=== PATIENT | female | born 1965 | race Caucasian/White ===

== ENCOUNTER 2019-12-27 14:35 | Emergency (ER) | payer MEDICARE, MEDICAID ==
[~2019-12-27] VITALS: Ht 172.7 cm; Wt 124.5 kg
[2019-12-27 14:37] VITALS: BP 129/78
[2019-12-27] MEDS ORDERED: CLAR-69 PO (16:10)
[2019-12-27] MEDS ORDERED: METH4TAB81 PO (16:10)
[2019-12-27] MEDS ORDERED: BENZ-16 PO (16:11)
== END 2019-12-27 16:42 | disposition home or self-care (01) ==
LOC: ER 14:35
DX: J32.9 Chronic sinusitis, unspecified (principal); R05 Cough; J44.9 Chronic obstructive pulmonary disease, unspecified; Z91.048 Other nonmedicinal substance allergy status; Z88.6 Allergy status to analgesic agent; Z79.2 Long term (current) use of antibiotics; Z79.899 Other long term (current) drug therapy
CPT/HCPCS: 99283

== ENCOUNTER 2020-06-22 17:59 | Emergency (ER) | payer MEDICARE, MEDICAID ==
[~2020-06-22] VITALS: Ht 170.2 cm; Wt 140.0 kg
[~2020-06-22 17:59] MED LIST: METH4TAB81 PO
[2020-06-22] MEDS ORDERED: ERYT1OIN6 EACHEYE (19:30)
[2020-06-22 19:43] VITALS: BP 186/78
== END 2020-06-23 00:05 | disposition home or self-care (01) ==
LOC: ER 06-23 00:05
DX: H10.9 Unspecified conjunctivitis (principal); J44.9 Chronic obstructive pulmonary disease, unspecified; Z91.041 Radiographic dye allergy status; Z88.6 Allergy status to analgesic agent; Z79.899 Other long term (current) drug therapy
CPT/HCPCS: 99283

== ENCOUNTER 2020-08-22 19:28 | Emergency (ER) | payer BC, MEDICAID, OTHER ==
[~2020-08-22] VITALS: Ht 170.2 cm; Wt 110.0 kg
[2020-08-22 21:38] VITALS: BP 107/54
== END 2020-08-22 21:40 | disposition home or self-care (01) ==
LOC: ER 19:28
DX: S06.0X0A Concussion without loss of consciousness, initial encounter (principal); R51.9 Headache, unspecified; M54.2 Cervicalgia; R53.1 Weakness; J44.9 Chronic obstructive pulmonary disease, unspecified; Z88.8 Allergy status to other drugs, medicaments and biological substances; Z79.899 Other long term (current) drug therapy; V87.7XXA Person injured in collision between other specified motor vehicles (traffic), initial encounter; Y93.89 Activity, other specified; Y92.89 Other specified places as the place of occurrence of the external cause; Y99.8 Other external cause status
CPT/HCPCS: 70450; 72125; 99285

== ENCOUNTER 2021-07-11 11:47 | Emergency (ER) | payer OTHER ==
[~2021-07-11] VITALS: Ht 170.2 cm; Wt 109.1 kg
[2021-07-11 11:53] VITALS: BP 112/74
[2021-07-11] MEDS ORDERED: CASIRIVIMAB/IMDEVIMAB inject. 10 ML in normal saline 100ml IV soln 100 ML IV ONE (13:15)
[2021-07-11] MEDS ORDERED: ALBU8HFA PO (14:37)
[2021-07-11] MEDS ORDERED: BENZ-16 PO (14:37)
== END 2021-07-11 14:56 | disposition home or self-care (01) ==
LOC: ER 11:48
DX: U07.1 COVID-19 (principal); R50.9 Fever, unspecified; J44.9 Chronic obstructive pulmonary disease, unspecified; Z91.041 Radiographic dye allergy status; Z88.8 Allergy status to other drugs, medicaments and biological substances; Z79.899 Other long term (current) drug therapy
CPT/HCPCS: 71045; 87635; 99284; C9803; M0243; Q0244

== ENCOUNTER 2021-09-25 17:59 | Emergency (ER) | payer OTHER ==
[~2021-09-25] VITALS: Ht 170.2 cm; Wt 122.7 kg
[2021-09-25 18:59] VITALS: BP 127/83
[2021-09-25] MEDS ORDERED: DEXA6TAB6 PO (19:08)
== END 2021-09-25 19:31 | disposition home or self-care (01) ==
LOC: ER 18:00
DX: J02.9 Acute pharyngitis, unspecified (principal); Z20.822 Contact with and (suspected) exposure to COVID-19; R50.9 Fever, unspecified; R19.7 Diarrhea, unspecified; R05.9 Cough, unspecified; R43.8 Other disturbances of smell and taste; I10 Essential (primary) hypertension; J44.9 Chronic obstructive pulmonary disease, unspecified; F17.200 Nicotine dependence, unspecified, uncomplicated; Z88.8 Allergy status to other drugs, medicaments and biological substances; Z79.899 Other long term (current) drug therapy
CPT/HCPCS: 87635; 99283; C9803

== ENCOUNTER 2023-06-22 10:48 | Emergency (ER) | payer MEDICARE, MEDICAID ==
[~2023-06-22] VITALS: Ht 170.2 cm; Wt 125.0 kg
[~2023-06-22 10:48] MED LIST changes: +DEXA6TAB6 PO
[2023-06-22] MEDS ORDERED: PENI250T2 PO (12:45)
[2023-06-22] MEDS ORDERED: NAPR-56 PO (12:45)
[2023-06-22 12:53] VITALS: BP 96/61; PULSE 79; RESP 18; TEMP 98.2; O2SAT 96
--- NOTE | 2023-06-22 14:51 | NUR ---
Chart reviewed after ADMISSIONS OFFICER assessment completed by Relief Charge Nurse, approved.
== END 2023-06-22 14:52 | disposition home or self-care (01) ==
LOC: ER 10:48
DX: K08.89 Other specified disorders of teeth and supporting structures (principal); K13.79 Other lesions of oral mucosa; I10 Essential (primary) hypertension; J44.9 Chronic obstructive pulmonary disease, unspecified; Z91.041 Radiographic dye allergy status; Z88.6 Allergy status to analgesic agent; Z79.899 Other long term (current) drug therapy
CPT/HCPCS: 99283

== ENCOUNTER 2024-03-27 10:08 | Emergency (ER) | payer MEDICARE, MEDICAID ==
[~2024-03-27] VITALS: Ht 175.3 cm; Wt 124.1 kg
[2024-03-27] MEDS ORDERED: LORA10TA7 PO (10:50)
[2024-03-27] MEDS ORDERED: CYCL-1 PO (10:52)
[2024-03-27] MEDS ORDERED: ATOR10TA70 PO (10:52)
[2024-03-27] MEDS ORDERED: HYDR50TA4 PO (10:52)
[2024-03-27] MEDS ORDERED: LOSA25TA41 PO (10:52)
[2024-03-27] MEDS ORDERED: LEVO150T8 PO (10:52)
[2024-03-27 12:06] LABS: BASOPHILS # (AUTO) 0.1 X10'3 (0-0.2); BASOPHILS % (AUTO) 0.7 % (0-1); EOSINOPHILS # (AUTO) 0.2 X10'3 (0-0.9); EOSINOPHILS % (AUTO) 1.7 % (0-6); HEMATOCRIT 39.4 % (35.0-45.0); HEMOGLOBIN 13.6 g/dl (12.0-16.0); LYMPHOCYTES # (AUTO) 1.9 X10'3 (1.1-4.8); LYMPHOCYTES % (AUTO) 19.9 % (21-51); MEAN CORPUSCULAR HEMOGLOBIN 33.9 PG (27.0-31.0); MEAN CORPUSCULAR HGB CONC 34.5 g/dL (33.0-36.5); MEAN CORPUSCULAR VOLUME 98.4 FL (78-98); MEAN PLATELET VOLUME 7.7 FL (7.4-10.4); MONOCYTES # (AUTO) 0.7 X10'3 (0-0.9); MONOCYTES % (AUTO) 7.5 % (2-12); NEUTROPHILS # (AUTO) 6.6 X10'3 (1.8-7.7); NEUTROPHILS % (AUTO) 70.2 % (42-75); PLATELET COUNT 389 X10'3 (140-440); RED CELL DISTRIBUTION WIDTH 17.2 % (11.5-14.5); WHITE BLOOD COUNT 9.4 X10'3 (4.5-11.0)
[2024-03-27 12:23] LABS: ALANINE AMINOTRANSFERASE 37 U/L (12-78); ALBUMIN 3.3 G/DL (3.4-5.0); ALBUMIN/GLOBULIN RATIO 0.8 (1.1-1.5); ALKALINE PHOSPHATASE 79 IU/L (46-116); ANION GAP 9 (8-16); ASPARTATE AMINO TRANSFERASE 26 U/L (10-37); BILIRUBIN,TOTAL 0.6 MG/DL (0.1-1.0); BLOOD UREA NITROGEN 11 MG/DL (7-18); BUN/CREATININE RATIO 11.8 (10.0-20.0); CALCIUM 9.2 MG/DL (8.5-10.1); CHLORIDE 99 MMOL/L (99-107); CREATININE 0.93 MG/DL (0.40-0.90); GLUCOSE 108 MG/DL (70-104); SODIUM 139 MMOL/L (135-145); TOTAL CARBON DIOXIDE 31.5 MMOL/L (24-32); TOTAL PROTEIN 7.3 G/DL (6.4-8.2); eCRCL 68 ML/MIN; eGFR 62 ML/MIN
[2024-03-27] MEDS ORDERED: AMOX-580 PO (12:53)
[2024-03-27] MEDS: amox tr/potassium clavulanate 875/125mg TAB PO ONE (13:20)
[2024-03-27 13:45] VITALS: BP 103/57; PULSE 79; RESP 16; TEMP 98.6; O2SAT 97
== END 2024-03-27 13:48 | disposition home or self-care (01) ==
LOC: ER 10:09
DX: L03.311 Cellulitis of abdominal wall (principal); R10.9 Unspecified abdominal pain; I10 Essential (primary) hypertension; J44.9 Chronic obstructive pulmonary disease, unspecified; Z91.041 Radiographic dye allergy status; Z88.6 Allergy status to analgesic agent; Z79.899 Other long term (current) drug therapy; Z79.2 Long term (current) use of antibiotics
CPT/HCPCS: 36415; 74176; 80053; 85025; 99284

== ENCOUNTER 2025-04-28 14:34 | Inpatient (IN) | payer MEDICAID, MEDICARE ==
[~2025-04-28] VITALS: Ht 170.2 cm; Wt 129.4 kg
[~2025-04-28 14:34] MED LIST changes: +ATOR10TA70 PO; +CYCL-1 PO; -DEXA6TAB6 PO; +HYDR50TA4 PO; +LEVO150T8 PO; +LORA10TA7 PO; +LOSA25TA41 PO; -METH4TAB81 PO
--- NOTE | 2025-04-28 18:22 | VASCULAR REPORT ---
Technique: Real-time ultrasound imaging, with color Doppler and compression of the left common femor al vein, femoral vein, greater saphenous vein, and popliteal vein. Indication: Pain Comparison: None Findings: There is normal compressibility and flow augmentation in all of the imaged deep veins. There are no f illing defects. Impression: No evidence of DVT in the left lower extremity
--- NOTE | 2025-04-28 18:34 | VASCULAR REPORT ---
Indication: Left lower extremity pain Technique: Real- time ultrasound images of the left lower extremity with grayscale, color, and spect ral wave Doppler. Comparison: None Findings: Monophasic waveforms throughout the left lower extremity. Scattered atherosclerotic calcifications. Peak systolic velocities are as follows (in cm/s): Left: Common femoral artery: 38 Profunda femoris: 38 Proximal superficial femoral: 45 Mid superficial femoral artery: 43 Distal superficial femoral artery: 29 Popliteal artery: 19 Posterior tibial artery: 11 Anterior tibial artery: 7 Right brachial 120, left brachial: 118 mm Hg Right posterior tibial artery: 68 mm Hg, left posterior tibial artery: 56 mm Hg Left VIC: 0.47 Right VIC: 0.5 Impression: Findings of severe peripheral arterial disease. Diffusely decreased left lower extremity velocities and monophasic waveforms consistent with hemodyna mically significant stenosis/ high-grade stenosis and likely aortoiliac inflow disease. Recommend CT angiogram of the abdomen/ pelvis and lower extremities to further evaluate Severely decreased bilateral aBIs consistent with severe peripheral arterial disease.
--- NOTE | 2025-04-28 19:14 | Physician Documentation ---
History of Present Illness ~ Chief Complaint: Leg Pain Stated Complaint: L LEG PAIN Time Seen by MD: 15:44 Primary Medical Doctor: ERIC ZARAGOZA Mode of Arrival: POV HPI Patient is seen today with complaints of severe pain of her left lower extremity especially while walking and states it does resolve with rest however not completely. Patient states she does have an extensive smoking history and continue smoking tobacco currently. Patient denies any current chest pain or shortness of breath or abdominal pain or nausea, vomiting, diarrhea. She states he is able to barely walk a few steps without pain in her left lower extremity becoming severe. Tetanus witin 5 years: Yes Medication Reconciliation Allergies: Coded Allergies: Iodine and Iodide Containing Produc (Unverified Allergy, Severe, 04/28/25) aspirin (Unverified Allergy, Severe, 04/28/25) Scheduled Atorvastatin Calcium (Atorvastatin Calcium), 1 TAB PO DAILY, (Reported) Hydrochlorothiazide (Hydrochlorothiazide), 1 TAB PO QAM, (Reported) Levothyroxine Sodium (Levothyroxine Sodium), 1 TAB PO DAILY, (Reported) Loratadine (Loratadine), 1 TAB PO QAM, (Reported) Losartan Potassium (Losartan Potassium), 1 TAB PO DAILY, (Reported) Scheduled PRN Cyclobenzaprine* (Cyclobenzaprine*), 1 TAB PO TID PRN for moderate or severe pain 4-10, (Reported) Past Medical History Past Medical History: Allergic Rhinitis, Sinusitis, Hypertension, Asthma, COPD Past Surgical History: noncontributory Alcohol Use: None Drug Use: none Lives In: Home Review of Systems Constitutional: Denies: chills, fever, weakness Eyes: Denies: pain, blurred vision ENT: Denies: ear pain, nose pain, throat pain, mouth pain Respiratory: Denies: cough, shortness of breath Cardiovascular: Denies: chest pain, palpitations Gastrointestinal: Denies: abdominal pain, nausea, vomiting Genitourinary: Denies: burning, dysuria Female Genitalia: Denies: vaginal discharge, pelvic pain Neurological: Denies: headache, dizziness Musculoskeletal: Denies: pain, swelling Integumentary: Denies: rash, lesions Allergic/Immunologic: Denies: hives, itching Hematologic/Lymphatic: Denies: no symptoms reported Psychiatric: Denies: depression, anxiety Physical Exam Vital Signs: Temperature: 98.4, Source: Oral, Heart Rate: 76, Respiratory Rate: 18, BP: 158/87, Pulse Oximetry: 94, Weight: 129.400 Oxygen Flow Rate: 0 Physical Exam General: Awake and Alert, no acute distress. HEENT: Conjunctiva pink, Sclera clear, Mucus Membranes moist. Neck: Supple without masses and tenderness. Resp: Unlabored. Lungs clear to auscultation bilaterally. Heart: Regular Rate and rhythm, normal S1 and S2 without murmur, rub or gallop. Abdomen: Soft and non tender no organomegaly Extremities: No cyanosis,clubbing or edema. I am unable to palpate pedal pulses in either lower extremity. Patient does have swelling of bilateral lower extremities worse on the left lower extremity. Patient is neurovascularly intact distally of the bilateral lower extremities. Motor function intact distally. Skin: Warm and Dry. Progress Results/Orders Results/Orders Orders - JAVIER BONILLA Page Hospitalist (04/28/25 19:12) Fill Out Med Reconciliation (04/28/25 19:12) Completed Orders - JAVIER BONILLA PAC MG (04/28/25 19:26) Pt Inr (04/28/25 19:26) Electrocardiogram (04/28/25 19:26) D-Dimer (04/28/25 19:26) Hs Troponin I W Calculations (04/28/25 19:26) PTT (04/28/25 19:44) Vital Signs 04/28/25 04/28/25 04/28/25 04/28/25 14:37 15:50 16:18 20:33 Temp 98.5 98.4 Pulse 96 76 57 Resp 18 16 18 18 B/P (MAP) 102/69 158/87 (110) 132/75 (94) Pulse Ox 99 94 96 O2 Flow Rate 0 0 0 Laboratory Tests Test 04/28/25 19:44 White Blood Count 9.5 Red Blood Count 4.68 Hemoglobin 15.2 Hematocrit 44.9 Mean Corpuscular Volume 96.0 Mean Corpuscular Hemoglobin 32.5 H Mean Corpuscular Hemoglobin Concent 33.8 Red Cell Distribution Width 15.1 H Platelet Count 322 Mean Platelet Volume 7.9 Neutrophils (%) (Auto) 62.8 Lymphocytes (%) (Auto) 27.3 Monocytes (%) (Auto) 6.9 Eosinophils (%) (Auto) 2.0 Basophils (%) (Auto) 1.0 Neutrophils # (Auto) 5.9 Lymphocytes # (Auto) 2.6 Monocytes # (Auto) 0.7 Eosinophils # (Auto) 0.2 Basophils # (Auto) 0.1 CBC Comment Prothrombin Time 10.3 INR International Normalized Ratio 1.0 Activated Partial Thromboplast Time 25 D-Dimer 0.64 H D-Dimer Comment Coagulation Comments Sodium Level 139 Potassium Level 3.2 L Chloride Level 98 L Carbon Dioxide Level 30.3 Anion Gap 11 Blood Urea Nitrogen 12 Creatinine 0.66 Estimated GFR/1.73 m2 > 90 BUN/Creatinine Ratio 18.2 Glucose Level 105 H Hemoglobin A1c 5.7 Calcium Level 9.5 Magnesium Level 2.1 Total Bilirubin 0.7 Aspartate Amino Transf (AST/SGOT) 24 Alanine Aminotransferase (ALT/SGPT) 23 Alkaline Phosphatase 83 Troponin I High Sensitivity 117 *H Total Protein 7.4 Albumin 3.8 Globulin 3.6 Albumin/Globulin Ratio 1.1 Triglycerides Level 253 H Cholesterol Level 212 H LDL Cholesterol 131 H HDL Cholesterol 40 Cholesterol/HDL Ratio 5.3 H Thyroid Stimulating Hormone (TSH) 1.99 Chemistry Comments EKG/XRAY/CT/US/VASC/MRI Vascular : Impression VASCULAR Patient: KEI LEON Medical Record: [id number] ELIZABETH HEBRON : 1965, Age: 59 Sex: F Location: ER Patient Status: REG ER Service Date/Time: 04/28/251449 Ordering Physician: JOE CLEMONS Exam Name: ARTERIAL Technologist: Raymundo Case Indication: Left lower extremity pain Technique: Real- time ultrasound images of the left lower extremity with grayscale, color, and spectral wave Doppler. Comparison: None Findings: Monophasic waveforms throughout the left lower extremity. Scattered atherosclerotic calcifications. Peak systolic velocities are as follows (in cm/s): Left: Common femoral artery: 38 Profunda femoris: 38 Proximal superficial femoral: 45 Mid superficial femoral artery: 43 Distal superficial femoral artery: 29 Popliteal artery: 19 Posterior tibial artery: 11 Anterior tibial artery: 7 Right brachial 120, left brachial: 118 mm Hg Right posterior tibial artery: 68 mm Hg, left posterior tibial artery: 56 mm Hg Left VIC: 0.47 Right VIC: 0.5 Impression: Findings of severe peripheral arterial disease. Diffusely decreased left lower extremity velocities and monophasic waveforms consistent with hemodynamically significant stenosis/ high-grade stenosis and likely aortoiliac inflow disease. Recommend CT angiogram of the abdomen/ pelvis and lower extremities to further evaluate Severely decreased bilateral aBIs consistent with severe peripheral arterial disease. Dictated by:ZULLY AQUINO MD Dictation date and time:04/28/251833 Electronically Signed by: ZULLY AQUINO MD Date and Time: 04/28/251833 Transcribed: [facility] Transcribed: NO PRIMARY CARE PROVIDER~ cc: ZULLY AQUINO MD; JOE CLEMONS ~ Medical Decision Making Findings Patient is seen today with complaints of severe pain of her left lower extremity especially while walking and states it does resolve with rest however not completely. Patient states she does have an extensive smoking history and continue smoking tobacco currently. Patient denies any current chest pain or shortness of breath or abdominal pain or nausea, vomiting, diarrhea. She states he is able to barely walk a few steps without pain in her left lower extremity becoming severe. Patient did have ultrasound of the lower extremities venous and arterial and there was no sign of blood clot found however she was found to have severe PVD worse on the left side. Hospitalist was consulted and CT angiogram of the abdomen and pelvis and lower extremities was ordered. Departure Disposition: 09 ADMITTED INPATIENT Admitted to Inpatient Unit: to hospitalist Impression: Primary Impression: Claudication of both lower extremities Condition: Fair Additional Instructions: Patient did have ultrasound of the lower extremities venous and arterial and there was no sign of blood clot found however she was found to have severe PVD worse on the left side. Hospitalist was consulted and CT angiogram of the abdomen and pelvis and lower extremities was ordered. Referrals: NO PRIMARY CARE PROVIDER (PCP) Signature Scribe Signature: No scribe Attestation: No scribe IRENEJAVIRE R [facility] Apr 28, 2025 19:14
--- NOTE | 2025-04-28 19:49 | ELECTROCARDIOGRAPH REPORT ---
[facility] Test Date: 2025-04-28 Test Time: 19:48:19 Pat Name: KEI LEON Department: [facility]-ER Patient ID: [facility]-[id number] Room: Gender: F Sexual Assault Counsellor: : 1965 Requested By: JAVIER BONILLA Order Number: [id number] Reading MD: Measurements Intervals [place] Rate: 51 P: 40 DE: 155 QRS: 39 QRSD: 104 T: 50 QT: 458 QTc: 422 Interpretive Statements Sinus bradycardia Atrial premature complexes in couplets Low voltage, precordial leads Please click the below link to view image of tracing.
[2025-04-28 19:57] LABS: MEAN PLATELET VOLUME 7.9 FL (7.4-10.4); RED CELL DISTRIBUTION WIDTH 15.1 % (11.5-14.5)
[2025-04-28 20:09] LABS: INR 1.0 INR
[2025-04-28] MEDS ORDERED: heparin 10,000 units/1 ML INJ IV PRN (20:25)
[2025-04-28] MEDS ORDERED: heparin 10,000 units/1 ML INJ IV ONE (20:25)
[2025-04-28 20:31] LABS: CREATININE 0.66 MG/DL (0.40-0.90); TOTAL CARBON DIOXIDE 30.3 MMOL/L (24-32); eCRCL 88 ML/MIN; eGFR > 90 ML/MIN
[2025-04-28] MEDS ORDERED: potassium Cl 20 mEq SR tablet PO PRN (20:35)
[2025-04-28] MEDS ORDERED: magnesium sulf-water 4G/100mL 100 ML IV PRN (20:35)
[2025-04-28] MEDS ORDERED: magnesium sulf-water 2g/50mL 50 ML IV PRN (20:35)
[2025-04-28] MEDS ORDERED: mag hydrox/Alum hydrox/simeth 30ml oral suspension PO PRN (20:35)
[2025-04-28] MEDS ORDERED: magnesium hydroxide 30ml (MOM) UD suspension PO PRN (20:35)
[2025-04-28] MEDS ORDERED: potassium Cl 40MEQ/1/2NS 520ml 520 ML IV PRN (20:35)
[2025-04-28] MEDS ORDERED: ondansetron/PF 4mg/2ml inj IV PRN (20:35)
[2025-04-28] MEDS ORDERED: magnesium Cl slow-release 64mg tablet PO PRN (20:35)
[2025-04-28 20:39] LABS: CHOL/HDL RATIO 5.3 (0.00-4.99); LDL CHOLESTEROL 131 MG/DL (50-100)
[2025-04-28 20:44] LABS: APTT 25 SECONDS (22-32)
--- NOTE | 2025-04-28 20:58 | HISTORY AND PHYSICAL-Residence ---
History & Physical Providers to CC Resident Creating Document: JOSÉ LUIS CHAMPION, CHRIS ~ History of Present Illness Primary Medical Doctor: ERIC MEDICAL Reason for Admit\Complaint: Peripheral Artery Disease History of Present Illness This is a 59-year-old female with a known history of hypertension, smoker ,presented in ER with complain of severe left leg pain. Patient states that her left leg pain was started 2 months ago which is progressively worsening excerbated by walking and partially relieved by rest.She grades her pain 10/10 during walking and around 7-8/10 at rest. Her pain starts from hip and radiate down to the mid calf.In addition to the pain, she has noticed left lower extremity swelling from knee to the leg since monday and thigh swelling since 2 weeks,She denies pain in her left feet but reports tingling sensations and feels cold, she can barely walk because of pain, she can go to restroom by herself with the support of ramirez. Apart from that she also had bilateral hip replacement 7-8 years ago. She has also experienced anaphylactic shock with iodine and aspirin. allergic to iodine,aspirin,cat dust,mold and some trees which she dont remember. Allergies: Coded Allergies: Iodine and Iodide Containing Produc (Unverified Allergy, Severe, 04/28/25) aspirin (Unverified Allergy, Severe, 04/28/25) Home Medications Home Medications Active Reported Atorvastatin Calcium 10 Mg Tablet 1 Tab PO DAILY Levothyroxine Sodium 150 Mcg Tablet 1 Tab PO DAILY Losartan Potassium 25 Mg Tablet 1 Tab PO DAILY Hydrochlorothiazide 50 Mg Tablet 1 Tab PO QAM Cyclobenzaprine* (Cyclobenzaprine HCl) 10 Mg Tablet 1 Tab PO TID PRN Loratadine 10 Mg Tablet 1 Tab PO QAM Past Medical History Past Medical History Hypertension Hypothyroidism Hyperlipidemia Past Surgical History Surgical History Comment Cholecystectomy Hysterectomy Bilateral hip replacement facial Sinus surgeries Nasal Polyps removed Past Social History Social History Comment Patient is a smoker and have been smoking since 20 years, she smokes half a pack a day but since last 3 months she is consuming a pack a day. 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 Alcohol Use: None Drug Use: None Lives In: Home ROS Constitutional: Reports: no symptoms reported Eyes: Reports: no symptoms reported ENT: Reports: no symptoms reported Respiratory: Reports: no symptoms reported Cardiovascular: Reports: no symptoms reported Gastrointestinal: Reports: no symptoms reported; Denies: abdominal pain, nausea, vomiting Genitourinary: Reports: no symptoms reported Female Genitalia: Reports: no reported symptoms Neurological: Reports: no symptoms reported; Denies: headache, dizziness Musculoskeletal: Reports: muscle swelling Integumentary: Denies: no symptoms reported, see HPI, rash, itching, lesions, lumps, bruise(s), wound(s), laceration(s), dryness, change in color, other Allergic/Immunologic: Reports: other (She had anaphylactic shock with aspirin and iodine.); Denies: itching Hematologic/Lymphatic: Reports: no symptoms reported Endocrine: Reports: no symptoms reported Psychiatric: Denies: depression, anxiety Exam Vitals: Vital Signs Date Time Temp Pulse Resp B/P (MAP) Pulse Ox O2 Delivery O2 Flow Rate FiO2 04/28/25 20:33 57 18 132/75 (94) 96 0 04/28/25 16:18 98.4 General: General: awake, alert oriented to place, time, and person HEENT: No pallor present, no icterus, moist mucous membranes Neck: No masses and tenderness Resp: Unlabored. Lungs clear to auscultation bilaterally. Chest: Normal expansion. Cardiovascular: Regular Rate and rhythm, normal S1 and S2 without murmur, rub or gallop Abdomen: Soft and non tender in epigastrium, no organomegaly, no guarding and rigidity, bowel sounds present. Neuro: No focal weakness in the upper and lower limb muscles, power of the muscles 5/5 bilateral upper and lower extremities, normal reflexes bilaterally. Cranial nerves intact Upper Extremities: No cyanosis,clubbing or edema Lower extremity examination. Warm left lower extremity swollen from thighs upto leg, foot was normal, bumps noted in left thigh, dorsalis pedis artery pulse palpable, no cyanosis noted, could not feel other pulses as patient was very obese. Warm Right lower extremity dorsalis pedis artery pulse palpable, no cyanosis noted,no swelling noted, could not feel other pulses as patient was very obese. Skin: Warm and Dry Psych: Normal affect Diagnostic Data Last Recorded Lab Results: 04/28/25194304/28/251943 Diagnostic Data: Laboratory Tests Test 04/28/25 19:44 Prothrombin Time 10.3 SECONDS (9.0-12.0) INR International Normalized Ratio 1.0 INR Activated Partial Thromboplast Time 25 SECONDS (22-32) D-Dimer 0.64 MG/L FEU (0-0.50) H D-Dimer Comment Coagulation Comments Advance Care Planning Advanced Care plannin - 30 Minutes (I spent 17 minutes in discussing various resuscitative measures with the patient and she chose to be full code) Additional Plan This is a 59-year-old female with a known history of hypertension, smoker ,presented in ER with complain of severe left leg pain. Patient states that her left leg pain was started 2 months ago which is progressively worsening excerbated by walking and partially relieved by rest.She grades her pain 10/10 during walking and around 7-8/10 at rest. Her pain starts from hip and radiate down to the mid calf.In addition to the pain, she has noticed left lower extremity swelling from knee to the leg since monday. and thigh swelling since 2 weeks,She denies pain in her left feet but reports tingling sensations and feels cold, she can barely walk because of pain, she can go to restroom by herself with the support of ramirez. PLAN Bilateral lower extremity PERIPHERAL ARTERY DISEASE Severe left lower extremity peripheral artery disease Arterial US: Diffusely decreased left lower extremity velocities and monophasic waveforms consistent with hemodynamically significant stenosis/ high-grade stenosis and likely aortoiliac inflow disease. Left VIC: 0.47 Right VIC: 0.5 Vascular US:No DVT noted in left lower extremity. Cholestrol 253, LDL Cholestrol 131 Patient started on Heparin drip in ER Start patient on 40 mg Atorvastatin Internet Researcher for smoking cessation. Monitor for signs for acute limb ischemia like paresthesias, paralysis, coldness of the feet, has been consulted for further evaluation and advised for CT angio abdomen/pelvis, bilateral lower extremity with iodine allergy protocol. HOWEVER PATIENT STATED SHE HAD SEVERE ANAPHYLAXIS WITH IODINE EVEN AFTER RECEIVING PREMEDICATION DURING PREVIOUS HOSPITALIZATION AT [facility]. WE WILL PREMEDICATE WITH 50 MG PREDNISONE AT 12:30 A.M, ANOTHER DOSE AT 6:30 A.M., AND ANOTHER DOSE AT 12:30 P.M. ALONG WITH ONE DOSE OF 50 MG OF IV BENADRYL AT 12:[address] DANG REGARDING FURTHER OPTIONS LIKE CO2 ANGIOGRAM PATIENT HAD HISTORY OF SEVERE IODINE ANAPHYLAXIS. Elevated troponins Likely secondary to type 2 NH Farhat Score [address] ELEVATION No chest pain trops trending downward tx2 114,104 Follow up with Echo and Lexiscan Hypokalemia most likely due to hydrochlorthiazide use. K is 3.2 Started patient on K protocol. Monitor CMP Hyperlipidemia Start atorvastatin 40 mg po daily. Follow up with lipid levels. Hypertension Awaiting Med Renco -home dose of hydrochlorothiazide and losartan on hold, restart once CT with contrast was done Hypothyrodism Continue Levothyroxine 150 mcg tablet daily. Monitor TSH Dvt Prophylaxis: On heparin drip now, put patient on Heparin SQ once heparin drip is dced Code Status: Full Code Patient was evaluated using HIPPA Compliant AV device Agree with plan as discussed with the resident Lakeisha Tam MD Date of Service: Apr 28, 2025 Billing Provider: LAKEISHA TAM MD, SANJAY, RES Apr 28, 2025 20:58 GERARD BLISS, RES Apr 28, 2025 22:46 LAKEISHA TAM MD Apr 29, 2025 02:48
[2025-04-28] MEDS: MESSAGE TO NURSING IV ONE (21:05)
[2025-04-28] MEDS: PERFLUTREN PROTEIN-A MICROSPHR (Optison) 0.22 MG/ML 3ML VIAL IV ONE (22:15)
[2025-04-28] MEDS: heparin 10,000 units/1 ML INJ IV ONE (22:28)
[2025-04-28] MEDS: heparin 25,000 UNIT/250ml bag 250 ML IV PRN (22:30)
[2025-04-28] MEDS ORDERED: HYDROcodone/acetaminophen 5mg/325mg tablet PO PRN (22:45)
[2025-04-28 23:30] VITALS: RESP 21; O2SAT 100
[2025-04-28] MEDS: HYDROcodone/acetaminophen 10/325mg tab PO PRN (23:50)
[2025-04-28] MEDS: potassium Cl 20 mEq SR tablet PO PRN (23:52)
[2025-04-28 23:57] VITALS: BP 125/58; PULSE 65; RESP 14; TEMP 96.8; O2SAT 92
[2025-04-29] VITALS (8 sets, daily range): BP systolic 103–133; BP diastolic 49–73; PULSE 53–89; RESP 20–25; TEMP 97.6–98.6; O2SAT 90–100
[2025-04-29 06:36] LABS: MEAN PLATELET VOLUME 8.3 FL (7.4-10.4); RED CELL DISTRIBUTION WIDTH 15.1 % (11.5-14.5)
[2025-04-29 06:46] LABS: INR 1.0 INR
[2025-04-29 06:49] LABS: APTT 87 SECONDS (22-32)
[2025-04-29 06:55] LABS: PHOSPHORUS 4.5 MG/DL (2.3-4.5)
[2025-04-29] MEDS: levoTHYROXINE 75mcg tablet PO SCH (07:02)
[2025-04-29] MEDS: K and/or MAG REPLACEMENT MC SCH (07:10)
[2025-04-29] MEDS: docusate sod 100mg capsule PO SCH (07:11)
[2025-04-29] MEDS: MESSAGE TO NURSING IV ONE ×2 (07:23→17:15)
[2025-04-29 08:47] LABS: PRO BRAIN NATRIURETIC PEPTIDE 69.0 PG/ML (0-125)
--- NOTE | 2025-04-29 18:33 | CARDIOLOGY REPORT ---
APPROVED REPORT EXAM: Comprehensive 2D, Doppler, and color-flow Echocardiogram. Patient Location: [facility] B Heart Rate: 60's bpm Rhythm: SINUS BRADYCARDIA Indications ANGINA TROP 114, 104 COPD HYPERTENSION BILATERAL EDEMA Blower Room Attendant: Hero King MD Previous echo: [facility] 06-26-2015 EF: 65%, trTR, trMR, RVE, LAE 2D Dimensions RVDd 2.3 cm IVSd 1.2 (0.7-1.1cm) LVDd 4.6 cm PWd 1.2 (0.7-1.1cm) IVSs 1.5 (0.8-1.2cm) LVDs 2.8 (2.5-4.0cm) PWs 1.5 (0.8-1.2cm) LVOT Diameter 2.25 (1.8-2.4cm) LVEF(%) 68.3 (>50%) FS (%) 38.0 % SV 66.0 ml CO 4.4 L/min M-Mode Dimensions Left Atrium(MM) 4.51 (2.5-4.0cm) Aortic Root 3.00 (2.2-3.7cm) Aortic Cusp Exc 1.17 (1.5-2.0cm) Aortic Valve AoV Peak Tex. 341.9 cm/s AoV VTI 79.5 cm AO Peak GR. 46.8 mmHg AO Mean GR. 28 mmHg LVOT VTI 23.66 cm LVOT Peak Tex. 106.6 cm/s VICTOR HUGO(VTI)/BSA 1.18 cm2/m2 VICTOR HUGO (VTI) 1.18 cm2 Mitral Valve MV E Velocity 101.8 cm/s MV Peak Gr. 6 mmHg MV DECEL TIME 276 ms MV A Velocity 109.1 cm/s MV PHT 68 ms E/A Ratio 0.9 MVA (PHT) 3.24 cm2 MV JYab299.4 cm/s Tricuspid Valve TR P. Velocity 275 cm/s RAP ESTIMATE 10 mmHg TR Peak Gr. 30 mmHg RVSP 40 mmHg LEFT VENTRICLE Normal LV size and function. Mild concentric hypertrophy. LVEF is 65-70%. RIGHT VENTRICLE RV is normal size and function. Elevated right heart pressures with an RVSP of 40 mmHg. ATRIA Left atrium is mildly dilated. AORTIC VALVE Trileaflet AV appears moderately sclerotic with moderate stenosis. VICTOR HUGO: 1.18 cmsq; Pkv: 342 cm/sec; G radients: 47/28 mmHG. No insufficiency. MITRAL VALVE Mild MV annular calcification without stenosis. Trace regurgitation. TRICUSPID VALVE TV appears structurally normal with trace regurgitation. PULMONIC VALVE Normal PV without stenosis, no insufficiency. GREAT VESSELS The aortic root is normal in size. PERICARDIUM Normal pericardium. No effusion. Other Information Study Quality: Adequate Conclusion Normal LV size and function. Mild concentric hypertrophy. LVEF is 65-70%. RV is normal size and function. Elevated right heart pressures with an RVSP of 40 mmHg. Left atrium is mildly dilated. Trileaflet AV appears moderately sclerotic with moderate stenosis. VICTOR HUGO: 1.18 cmsq; Pkv: 342 cm/sec; G radients: 47/28 mmHG. No insufficiency. Mild MV annular calcification without stenosis. Trace regurgitation. TV appears structurally normal with trace regurgitation. Normal pericardium. No effusion.
--- NOTE | 2025-04-29 19:50 | PROGRESS NOTE- Residence ---
Progress Note - Resident Providers to CC Resident Creating Document: ANSON JUAN, CHRIS ~ Central Line/PICC still needed: N\A Shin-Non Protocol Shin Indications Met/Not Met: F/C Indications Not Met Antibiotic Timeout Antibiotic Ordered?: No Subjective Patient examined bedside. She complains of pain in bilateral legs. She is able to wiggle her toes. Russell sign positive bilaterally. Objective Vital Signs Date Time Temp Pulse Resp B/P (MAP) Pulse Ox O2 Delivery O2 Flow Rate FiO2 04/29/25 15:10 16 04/29/25 15:00 98.3 75 122/63 (82) 98 Room Air 04/29/25 08:00 0.0 Result Diagram: 04/29/25 0554 04/29/25 0554 General: awake, alert oriented to place, time, and person HEENT: No pallor present, no icterus, moist mucous membranes Neck: No masses and tenderness Resp: Unlabored. Lungs clear to auscultation bilaterally. Chest: Normal expansion. Cardiovascular: Regular Rate and rhythm, normal S1 and S2 without murmur, rub or gallop Abdomen: Soft and non tender in epigastrium, no organomegaly, no guarding and rigidity, bowel sounds present. Neuro: No focal weakness in the upper and lower limb muscles, power of the muscles 5/5 bilateral upper and lower extremities, normal reflexes bilaterally. Cranial nerves intact Upper Extremities: No cyanosis,clubbing or edema Lower extremity examination. Warm left lower extremity swollen from thighs upto leg, foot was normal, bumps noted in left thigh, dorsalis pedis artery pulse palpable, no cyanosis noted, could not feel other pulses as patient was very obese. Warm Right lower extremity dorsalis pedis artery pulse palpable, no cyanosis noted,no swelling noted, could not feel other pulses as patient was very obese. Coagulation Studies Laboratory Tests Test 04/28/25 19:44 04/29/25 05:54 04/29/25 15:04 D-Dimer 0.64 MG/L FEU (0-0.50) H D-Dimer Comment Prothrombin Time 10.5 SECONDS (9.0-12.0) INR International Normalized Ratio 1.0 INR Activated Partial Thromboplast Time 87 SECONDS (22-32) *H APTT (Heparin Protocol) 66 SECONDS (45-75) Coagulation Comments Assessment Assessment 59-year-old female with a known history of hypertension, smoker ,presented in ER with complain of severe left leg pain. Plan Plan PLAN Bilateral lower extremity PERIPHERAL ARTERY DISEASE Severe left lower extremity peripheral artery disease Arterial US: Diffusely decreased left lower extremity velocities and monophasic waveforms consistent with hemodynamically significant stenosis/ high-grade stenosis and likely aortoiliac inflow disease. Left VIC: 0.47 Right VIC: 0.5 Vascular US:No DVT noted in left lower extremity. Cholestrol 253, LDL Cholestrol 131 Patient started on Heparin drip in ER Start patient on 40 mg Atorvastatin Counseled for smoking cessation. Monitor for signs for acute limb ischemia like paresthesias, paralysis, coldness of the feet, has been consulted for further evaluation and advised for CT angio abdomen/pelvis, bilateral lower extremity with iodine allergy protocol. HOWEVER PATIENT STATED SHE HAD SEVERE ANAPHYLAXIS WITH IODINE EVEN AFTER RECEIVING PREMEDICATION DURING PREVIOUS HOSPITALIZATION AT [facility]. WILL DISCUSS WITH DR. DANG REGARDING FURTHER OPTIONS LIKE CO2 ANGIOGRAM PATIENT HAD HISTORY OF SEVERE IODINE ANAPHYLAXIS. 04/29/2025: Working with the medical case manager to arrange for CO2 angiogram in any hospital. CT with contrast not possible under any circumstances even with pre dosing of prednisone. Patient has declined to this procedure Elevated troponins Likely secondary to type 2 [place] Farhat Score [address] ELEVATION No chest pain trops trending downward tx2 114,104 04/29/2025: Patient reports no chest pain Echo:Normal LV size and function. Mild concentric hypertrophy. LVEF is 65-70%. RV is normal size and function. Elevated right heart pressures with an RVSP of 40 mmHg. Left atrium is mildly dilated. Trileaflet AV appears moderately sclerotic with moderate stenosis. VICTOR HUGO: 1.18 cmsq; Pkv: 342 cm/sec; Gradients: 47/28 mmHG. No insufficiency. Mild MV annular calcification without stenosis. Trace regurgitation. TV appears structurally normal with trace regurgitation. Normal pericardium. No effusion. Hypokalemia most likely due to hydrochlorthiazide use. K is 3.2 Started patient on K protocol. Monitor CMP 04/29/2025: Potassium 3.8, we will continue monitoring potassium levels Hyperlipidemia Start atorvastatin 40 mg po daily. 04/29/2025: Triglyceride 253, cholesterol 212, LDL 131, HDL 40 Hypertension Awaiting [facility] home dose of hydrochlorothiazide and losartan on hold Hypothyrodism Continue Levothyroxine 150 mcg tablet daily. TSH 1.99 Code status: Full code DVT prophylaxis: Heparin Analgesia/sedation: Morphine/[place] Line/tube: PIV GI prophylaxis: None Nutrition: Regular diet PT: Ordered. Prognosis: Guarded Disposition: Continue medical management. Anson Juan PGY1, Internal Medicine [facility] Date of Service: Apr 29, 2025 Billing Provider: OSWALDO HITCHCOCK MD Common Visit Codes: [id number] INP/OBS CARE(HIGH) ANSON JUAN, RES Apr 29, 2025 19:50 OSWALDO HITCHCOCK MD Apr 30, 2025 08:23
--- NOTE | 2025-04-29 19:56 | PROGRESS NOTE ---
Progress Note ID Providers to CC ~ Progress Note Progress Note: pt seen and examined-workup pending BRIAN COELLO MD Apr 29, 2025 19:56
[2025-04-30] VITALS (8 sets, daily range): BP systolic 101–146; BP diastolic 48–59; PULSE 52–69; RESP 16–22; TEMP 97.4–97.7; O2SAT 92–98
[2025-04-30] MEDS: MESSAGE TO NURSING IV ONE ×2 (00:15→08:20)
[2025-04-30 07:37] LABS: MEAN PLATELET VOLUME 8.8 FL (7.4-10.4); RED CELL DISTRIBUTION WIDTH 15.2 % (11.5-14.5)
[2025-04-30 07:42] LABS: INR 1.0 INR
[2025-04-30 08:14] LABS: CREATININE 0.76 MG/DL (0.40-0.90); PHOSPHORUS 3.7 MG/DL (2.3-4.5); TOTAL CARBON DIOXIDE 26.9 MMOL/L (24-32); eCRCL 77 ML/MIN; eGFR 78 ML/MIN
--- NOTE | 2025-04-30 16:43 | PROGRESS NOTE- Residence ---
Progress Note - Resident Providers to CC Resident Creating Document: ANSON JUAN, CHRIS ~ Central Line/PICC still needed: N\A Antibiotic Timeout Antibiotic Ordered?: No Subjective Patient examined bedside. She complains of pain in bilateral legs. She is able to wiggle her toes. Russell sign positive bilaterally. She also complains of Objective Vital Signs Date Time Temp Pulse Resp B/P (MAP) Pulse Ox O2 Delivery O2 Flow Rate FiO2 04/30/25 15:55 19 04/30/25 08:00 94 Room Air 0.0 04/30/25 06:00 97.7 52 118/59 (78) Result Diagram: 04/30/2559 04/30/25658 General: awake, alert oriented to place, time, and person HEENT: No pallor present, no icterus, moist mucous membranes Neck: No masses and tenderness Resp: Unlabored. Lungs clear to auscultation bilaterally. Chest: Normal expansion. Cardiovascular: Regular Rate and rhythm, normal S1 and S2 without murmur, rub or gallop Abdomen: Soft and non tender in epigastrium, no organomegaly, no guarding and rigidity, bowel sounds present. Neuro: No focal weakness in the upper and lower limb muscles, power of the muscles 5/5 bilateral upper and lower extremities, normal reflexes bilaterally. Cranial nerves intact Upper Extremities: No cyanosis,clubbing or edema Lower extremity examination. Warm left lower extremity swollen from thighs upto leg, foot was normal, bumps noted in left thigh, dorsalis pedis artery pulse palpable, no cyanosis noted, could not feel other pulses as patient was very obese. Warm Right lower extremity dorsalis pedis artery pulse palpable, no cyanosis noted,no swelling noted, could not feel other pulses as patient was very obese. Coagulation Studies Laboratory Tests Test 04/28/25 19:44 04/29/25 05:54 04/30/25 06:59 D-Dimer 0.64 MG/L FEU (0-0.50) H D-Dimer Comment Activated Partial Thromboplast Time 87 SECONDS (22-32) *H Prothrombin Time 10.2 SECONDS (9.0-12.0) INR International Normalized Ratio 1.0 INR APTT (Heparin Protocol) 47 SECONDS (45-75) Coagulation Comments Assessment Assessment 59-year-old female with a known history of hypertension, smoker ,presented in ER with complain of severe left leg pain. Plan Plan PLAN Bilateral lower extremity PERIPHERAL ARTERY DISEASE Severe left lower extremity peripheral artery disease Arterial US: Diffusely decreased left lower extremity velocities and monophasic waveforms consistent with hemodynamically significant stenosis/ high-grade stenosis and likely aortoiliac inflow disease. Left VIC: 0.47 Right VIC: 0.5 Vascular US:No DVT noted in left lower extremity. Cholestrol 253, LDL Cholestrol 131 Patient started on Heparin drip in ER Start patient on 40 mg Atorvastatin Counseled for smoking cessation. Monitor for signs for acute limb ischemia like paresthesias, paralysis, coldness of the feet, has been consulted for further evaluation and advised for CT angio abdomen/pelvis, bilateral lower extremity with iodine allergy protocol. HOWEVER PATIENT STATED SHE HAD SEVERE ANAPHYLAXIS WITH IODINE EVEN AFTER RECEIVING PREMEDICATION DURING PREVIOUS HOSPITALIZATION AT [facility]. WILL DISCUSS WITH DR. DANG REGARDING FURTHER OPTIONS LIKE CO2 ANGIOGRAM PATIENT HAD HISTORY OF SEVERE IODINE ANAPHYLAXIS. 04/29/2025: Working with the counseling case manager to arrange for CO2 angiogram in any hospital. CT with contrast not possible under any circumstances even with pre dosing of prednisone. Patient has declined to this procedure Elevated troponins Likely secondary to type 2 [place] Farhat Score [address] ELEVATION No chest pain trops trending downward tx2 114,104 04/29/2025: Patient reports no chest pain Echo:Normal LV size and function. Mild concentric hypertrophy. LVEF is 65-70%. RV is normal size and function. Elevated right heart pressures with an RVSP of 40 mmHg. Left atrium is mildly dilated. Trileaflet AV appears moderately sclerotic with moderate stenosis. VICTOR HUGO: 1.18 cmsq; Pkv: 342 cm/sec; Gradients: 47/28 mmHG. No insufficiency. Mild MV annular calcification without stenosis. Trace regurgitation. TV appears structurally normal with trace regurgitation. Normal pericardium. No effusion. Leukocytosis most likely due to peripheral neutrophilia She complained of cough with whitish sputum, we will continue monitoring her symptoms 04/30/2025: WBC count increased from 9.5-17.1 The patient received 150 mg prednisolone yesterday keep report for CT with contrast Procalcitonin less than 0.05, CRP 0.09 Hypokalemia most likely due to hydrochlorthiazide use. K is 3.2 Started patient on K protocol. Monitor CMP 04/29/2025: Potassium 3.8, we will continue monitoring potassium levels Hyperlipidemia Start atorvastatin 40 mg po daily. 04/29/2025: Triglyceride 253, cholesterol 212, LDL 131, HDL 40 Hypertension Awaiting [facility] home dose of hydrochlorothiazide and losartan on hold Hypothyrodism Continue Levothyroxine 150 mcg tablet daily. TSH 1.99 Code status: Full code DVT prophylaxis: Heparin Analgesia/sedation: Morphine/[place] Line/tube: PIV GI prophylaxis: None Nutrition: Regular diet PT: Ordered. Prognosis: Guarded Disposition: Continue medical management. Anosn Juan PGY1, Internal Medicine [facility] Date of Service: Apr 30, 2025 Billing Provider: OSWALDO HITCHCOCK MD Common Visit Codes: [id number] INP/OBS CARE(HIGH) ANSON JUAN, RES Apr 30, 2025 16:43 OSWALDO HITCHCOCK MD May 01, 2025 07:53
--- NOTE | 2025-04-30 17:11 | PROGRESS NOTE ---
Progress Note ID Providers to CC ~ Progress Note Progress Note: awaiting imaging BRIAN COELLO MD Apr 30, 2025 17:11
[2025-05-01] VITALS (9 sets, daily range): BP systolic 107–148; BP diastolic 42–75; PULSE 51–69; RESP 12–20; TEMP 96.9–98.2; O2SAT 93–98
[2025-05-01 07:02] LABS: MEAN PLATELET VOLUME 8.5 FL (7.4-10.4); RED CELL DISTRIBUTION WIDTH 15.3 % (11.5-14.5)
[2025-05-01 07:10] LABS: PHOSPHORUS 4.4 MG/DL (2.3-4.5)
[2025-05-01 07:11] LABS: APTT 24 SECONDS (22-32); INR 1.0 INR
[2025-05-01 08:43] LABS: CREATININE 0.75 MG/DL (0.40-0.90); TOTAL CARBON DIOXIDE 27.5 MMOL/L (24-32); eCRCL 78 ML/MIN; eGFR 79 ML/MIN
[2025-05-01] MEDS: HYDROcodone/acetaminophen 10/325mg tab PO PRN (15:41)
--- NOTE | 2025-05-01 20:09 | PROGRESS NOTE- Residence ---
Progress Note - Resident Providers to CC Resident Creating Document: ANSON JUAN, CHRIS ~ Central Line/PICC still needed: N\A Shin-Non Protocol Shin Indications Met/Not Met: F/C Indications Not Met Antibiotic Timeout Antibiotic Ordered?: No Subjective Patient examined bedside. She complains of pain in bilateral legs which is 10/10 and reduces to 8/10 on pain medication. We will increase or pain medication today and monitor her symptoms. She is able to wiggle her toes. Russell sign positive bilaterally. Objective Vital Signs Date Time Temp Pulse Resp B/P (MAP) Pulse Ox O2 Delivery O2 Flow Rate FiO2 05/01/25 16:41 19 05/01/25 15:00 97.4 65 148/75 (99) 96 Room Air 05/01/25 08:00 0.0 Result Diagram: 05/01/25 0602 05/01/25 0751 General: awake, alert oriented to place, time, and person HEENT: No pallor present, no icterus, moist mucous membranes Neck: No masses and tenderness Resp: Unlabored. Lungs clear to auscultation bilaterally. Chest: Normal expansion. Cardiovascular: Regular Rate and rhythm, normal S1 and S2 without murmur, rub or gallop Abdomen: Soft and non tender in epigastrium, no organomegaly, no guarding and rigidity, bowel sounds present. Neuro: No focal weakness in the upper and lower limb muscles, power of the muscles 5/5 bilateral upper and lower extremities, normal reflexes bilaterally. Cranial nerves intact Upper Extremities: No cyanosis,clubbing or edema Lower extremity examination. Warm left lower extremity swollen from thighs upto leg, foot was normal, bumps noted in left thigh, dorsalis pedis artery pulse palpable, no cyanosis noted, could not feel other pulses as patient was very obese. Warm Right lower extremity dorsalis pedis artery pulse palpable, no cyanosis noted,no swelling noted, could not feel other pulses as patient was very obese. Coagulation Studies Laboratory Tests Test 04/28/25 19:44 04/30/25 06:59 05/01/25 06:02 D-Dimer 0.64 MG/L FEU (0-0.50) H D-Dimer Comment APTT (Heparin Protocol) 47 SECONDS (45-75) Prothrombin Time 10.0 SECONDS (9.0-12.0) INR International Normalized Ratio 1.0 INR Activated Partial Thromboplast Time 24 SECONDS (22-32) Coagulation Comments Assessment Assessment 59-year-old female with a known history of hypertension, smoker ,presented in ER with complain of severe left leg pain. Plan Plan PLAN Bilateral lower extremity PERIPHERAL ARTERY DISEASE Severe left lower extremity peripheral artery disease Arterial US: Diffusely decreased left lower extremity velocities and monophasic waveforms consistent with hemodynamically significant stenosis/ high-grade stenosis and likely aortoiliac inflow disease. Left VIC: 0.47 Right VIC: 0.5 Vascular US:No DVT noted in left lower extremity. Cholestrol 253, LDL Cholestrol 131 Patient started on Heparin drip in ER Start patient on 40 mg Atorvastatin Counseled for smoking cessation. Monitor for signs for acute limb ischemia like paresthesias, paralysis, coldness of the feet, has been consulted for further evaluation and advised for CT angio abdomen/pelvis, bilateral lower extremity with iodine allergy protocol. HOWEVER PATIENT STATED SHE HAD SEVERE ANAPHYLAXIS WITH IODINE EVEN AFTER RECEIVING PREMEDICATION DURING PREVIOUS HOSPITALIZATION AT [facility]. WILL DISCUSS WITH DR. DANG REGARDING FURTHER OPTIONS LIKE CO2 ANGIOGRAM PATIENT HAD HISTORY OF SEVERE IODINE ANAPHYLAXIS. 05/01/2025: Heparin drip stopped. PT 10, INR 1, APTT 24 Working with the case management associate to arrange for CO2 angiogram in any hospital. CT with contrast not possible under any circumstances even with pre dosing of prednisone. Patient has declined to this procedure Elevated troponins Likely secondary to type 2 [place] Farhat Score [address] ELEVATION No chest pain trops trending downward tx2 114,104 04/29/2025: Patient reports no chest pain Echo:Normal LV size and function. Mild concentric hypertrophy. LVEF is 65-70%. RV is normal size and function. Elevated right heart pressures with an RVSP of 40 mmHg. Left atrium is mildly dilated. Trileaflet AV appears moderately sclerotic with moderate stenosis. VICTOR HUGO: 1.18 cmsq; Pkv: 342 cm/sec; Gradients: 47/28 mmHG. No insufficiency. Mild MV annular calcification without stenosis. Trace regurgitation. TV appears structurally normal with trace regurgitation. Normal pericardium. No effusion. Leukocytosis most likely due to peripheral neutrophilia She complained of cough with whitish sputum, we will continue monitoring her symptoms 04/30/2025: WBC count increased from 9.5-17.1 The patient received 150 mg prednisolone yesterday keep report for CT with contrast Procalcitonin less than 0.05, CRP 0.09 05/01/2025: Leukocytosis resolved WBC 9 Hypokalemia most likely due to hydrochlorthiazide use. K is 3.2 Started patient on K protocol. Monitor CMP 04/29/2025: Potassium 3.8, we will continue monitoring potassium levels Hyperlipidemia Start atorvastatin 40 mg po daily. 04/29/2025: Triglyceride 253, cholesterol 212, LDL 131, HDL 40 Hypertension home dose of hydrochlorothiazide and losartan on hold in view of soft blood pressure Hypothyrodism Continue Levothyroxine 150 mcg tablet daily. TSH 1.99 Code status: Full code DVT prophylaxis: Heparin Analgesia/sedation: Morphine/[place] Line/tube: PIV GI prophylaxis: None Nutrition: Regular diet PT: Ordered. Prognosis: Guarded Disposition: Continue medical management. Anson Juan PGY1, Internal Medicine [facility] Date of Service: May 01, 2025 Billing Provider: OSWALDO HITCHCOCK MD Common Visit Codes: [id number] INP/OBS CARE(HIGH) ANSON JUAN, RES May 01, 2025 20:09 OSWALDO HITCHCOCK MD May 02, 2025 07:01
[2025-05-02 04:48] LABS: MEAN PLATELET VOLUME 8.2 FL (7.4-10.4); RED CELL DISTRIBUTION WIDTH 15.2 % (11.5-14.5)
[2025-05-02 04:51] LABS: INR 1.0 INR
[2025-05-02 04:59] LABS: PHOSPHORUS 4.0 MG/DL (2.3-4.5)
[2025-05-02 06:34] VITALS: BP 132/64; PULSE 55; RESP 14; TEMP 97.9; O2SAT 95
[2025-05-02 08:55] VITALS: RESP 16; O2SAT 95
[2025-05-02 09:11] LABS: CREATININE 0.71 MG/DL (0.40-0.90); TOTAL CARBON DIOXIDE 27.9 MMOL/L (24-32); eCRCL 82 ML/MIN; eGFR 84 ML/MIN
[2025-05-02 10:00] VITALS: BP 147/70; PULSE 61; RESP 16; TEMP 97; O2SAT 96
--- NOTE | 2025-05-02 17:47 | PROGRESS NOTE- Residence ---
Progress Note - Resident Providers to CC Resident Creating Document: ANSON JUAN, CHRIS ~ Central Line/PICC still needed: N\A Shin-Non Protocol Shin Indications Met/Not Met: F/C Indications Not Met Antibiotic Timeout Antibiotic Ordered?: No Subjective Patient examined bedside. She complains of pain in bilateral legs which is 10/10 and reduces to 7/10 on pain medication. She is able to wiggle her toes. Russell sign positive bilaterally. Objective Vital Signs Date Time Temp Pulse Resp B/P (MAP) Pulse Ox O2 Delivery O2 Flow Rate FiO2 05/02/25 15:02 16 05/02/25 10:00 97.0 61 147/70 (95) 96 Room Air 0.0 Result Diagram: 05/03/25 0547 05/02/25 0832 General: awake, alert oriented to place, time, and person HEENT: No pallor present, no icterus, moist mucous membranes Neck: No masses and tenderness Resp: Unlabored. Lungs clear to auscultation bilaterally. Chest: Normal expansion. Cardiovascular: Regular Rate and rhythm, normal S1 and S2 without murmur, rub or gallop Abdomen: Soft and non tender in epigastrium, no organomegaly, no guarding and rigidity, bowel sounds present. Neuro: No focal weakness in the upper and lower limb muscles, power of the muscles 5/5 bilateral upper and lower extremities, normal reflexes bilaterally. Cranial nerves intact Upper Extremities: No cyanosis,clubbing or edema Lower extremity examination. Warm left lower extremity swollen from thighs upto leg, foot was normal, bumps noted in left thigh, dorsalis pedis artery pulse palpable, no cyanosis noted, could not feel other pulses as patient was very obese. Warm Right lower extremity dorsalis pedis artery pulse palpable, no cyanosis noted,no swelling noted, could not feel other pulses as patient was very obese. Coagulation Studies Laboratory Tests Test 04/28/25 19:44 04/30/25 06:59 05/01/25 06:02 05/02/25 04:04 D-Dimer 0.64 MG/L FEU (0-0.50) H D-Dimer Comment APTT (Heparin Protocol) 47 SECONDS (45-75) Activated Partial Thromboplast Time 24 SECONDS (22-32) Prothrombin Time 10.4 SECONDS (9.0-12.0) INR International Normalized Ratio 1.0 INR Coagulation Comments Assessment Assessment 59-year-old female with a known history of hypertension, smoker ,presented in ER with complain of severe left leg pain. Plan Plan PLAN Bilateral lower extremity PERIPHERAL ARTERY DISEASE Severe left lower extremity peripheral artery disease Arterial US: Diffusely decreased left lower extremity velocities and monophasic waveforms consistent with hemodynamically significant stenosis/ high-grade stenosis and likely aortoiliac inflow disease. Left VIC: 0.47 Right VIC: 0.5 Vascular US:No DVT noted in left lower extremity. Cholestrol 253, LDL Cholestrol 131 Patient started on Heparin drip in ER Start patient on 40 mg Atorvastatin Counseled for smoking cessation. Monitor for signs for acute limb ischemia like paresthesias, paralysis, coldness of the feet, has been consulted for further evaluation and advised for CT angio abdomen/pelvis, bilateral lower extremity with iodine allergy protocol. HOWEVER PATIENT STATED SHE HAD SEVERE ANAPHYLAXIS WITH IODINE EVEN AFTER RECEIVING PREMEDICATION DURING PREVIOUS HOSPITALIZATION AT [facility]. WILL DISCUSS WITH DR. DANG REGARDING FURTHER OPTIONS LIKE CO2 ANGIOGRAM PATIENT HAD HISTORY OF SEVERE IODINE ANAPHYLAXIS. 05/02/2025: Heparin drip stopped. PT 10, INR 1. Working with the egg caser to arrange for CO2 angiogram in any hospital. CT with contrast not possible under any circumstances even with pre dosing of prednisone. Patient has declined to this procedure Elevated troponins Likely secondary to type 2 [place] Farhat Score [address] ELEVATION No chest pain trops trending downward tx2 114,104 04/29/2025: Patient reports no chest pain Echo:Normal LV size and function. Mild concentric hypertrophy. LVEF is 65-70%. RV is normal size and function. Elevated right heart pressures with an RVSP of 40 mmHg. Left atrium is mildly dilated. Trileaflet AV appears moderately sclerotic with moderate stenosis. VICTOR HUGO: 1.18 cmsq; Pkv: 342 cm/sec; Gradients: 47/28 mmHG. No insufficiency. Mild MV annular calcification without stenosis. Trace regurgitation. TV appears structurally normal with trace regurgitation. Normal pericardium. No effusion. Leukocytosis most likely due to peripheral neutrophilia She complained of cough with whitish sputum, we will continue monitoring her symptoms 04/30/2025: WBC count increased from 9.5-17.1 The patient received 150 mg prednisolone yesterday keep report for CT with contrast Procalcitonin less than 0.05, CRP 0.09 05/01/2025: Leukocytosis resolved WBC 9 Hypokalemia most likely due to hydrochlorthiazide use. K is 3.2 Started patient on K protocol. Monitor CMP 04/29/2025: Potassium 3.8, we will continue monitoring potassium levels Hyperlipidemia Start atorvastatin 40 mg po daily. 04/29/2025: Triglyceride 253, cholesterol 212, LDL 131, HDL 40 Hypertension home dose of hydrochlorothiazide and losartan on hold in view of soft blood pressure Hypothyrodism Continue Levothyroxine 150 mcg tablet daily. TSH 1.99 Code status: Full code DVT prophylaxis: Heparin Analgesia/sedation: Morphine/[place] Line/tube: PIV GI prophylaxis: None Nutrition: Regular diet PT: Ordered. Prognosis: Guarded Disposition: Continue medical management. Anson Juan PGY1, Internal Medicine [facility] Addendum Discussed with LEOLA Salazar MD at [facility], per prior studies at their facility pt has severe atherosclerotic disease in aorta and iliac arteries, might be difficult even to perform co2 angiogram; suggested pelic mra, which cannot be performed at neither our facility or [facility] Date of Service: May 02, 2025 Billing Provider: OSWALDO HITCHCOCK MD Common Visit Codes: [id number] INP/OBS CARE(HIGH) ANSON JUAN, CHRIS May 02, 2025 17:47 OSWALDO HITCHCOCK MD May 03, 2025 08:17
[2025-05-02 18:00] VITALS: BP 119/61; PULSE 65; RESP 16; TEMP 98.3; O2SAT 92
[2025-05-02 22:00] VITALS: BP 148/52; PULSE 74; RESP 18; TEMP 98.2; O2SAT 96
[2025-05-03 06:39] LABS: MEAN PLATELET VOLUME 8.3 FL (7.4-10.4); RED CELL DISTRIBUTION WIDTH 15.5 % (11.5-14.5)
[2025-05-03 06:42] LABS: INR 1.0 INR
[2025-05-03 06:53] VITALS: BP 128/66; PULSE 65; RESP 16; TEMP 97.8; O2SAT 94
[2025-05-03 06:55] LABS: PHOSPHORUS 4.3 MG/DL (2.3-4.5)
[2025-05-03 10:30] VITALS: BP 119/78; PULSE 68; RESP 16; TEMP 99; O2SAT 94
--- NOTE | 2025-05-03 17:26 | PROGRESS NOTE- Residence ---
Progress Note - Resident Providers to CC Resident Creating Document: ANSON JUAN, CHRIS ~ Central Line/PICC still needed: N\A Shin-Non Protocol Shin Indications Met/Not Met: F/C Indications Not Met Antibiotic Timeout Antibiotic Ordered?: No Subjective Patient examined bedside. She complains of pain in bilateral legs which is 10/10 and reduces to 7/10 on pain medication. She is able to wiggle her toes. Russell sign positive bilaterally. Objective Vital Signs Date Time Temp Pulse Resp B/P (MAP) Pulse Ox O2 Delivery O2 Flow Rate FiO2 05/03/25 16:09 18 05/03/25 10:30 99.0 68 119/78 (92) 94 Room Air 05/03/25 08:30 0.0 Result Diagram: 05/03/25 0547 05/02/25 0832 General: awake, alert oriented to place, time, and person HEENT: No pallor present, no icterus, moist mucous membranes Neck: No masses and tenderness Resp: Unlabored. Lungs clear to auscultation bilaterally. Chest: Normal expansion. Cardiovascular: Regular Rate and rhythm, normal S1 and S2 without murmur, rub or gallop Abdomen: Soft and non tender in epigastrium, no organomegaly, no guarding and rigidity, bowel sounds present. Neuro: No focal weakness in the upper and lower limb muscles, power of the muscles 5/5 bilateral upper and lower extremities, normal reflexes bilaterally. Cranial nerves intact Upper Extremities: No cyanosis,clubbing or edema Lower extremity examination. Warm left lower extremity swollen from thighs upto leg, foot was normal, bumps noted in left thigh, dorsalis pedis artery pulse palpable, no cyanosis noted, could not feel other pulses as patient was very obese. Warm Right lower extremity dorsalis pedis artery pulse palpable, no cyanosis noted,no swelling noted, could not feel other pulses as patient was very obese. Coagulation Studies Laboratory Tests Test 04/28/25 19:44 04/30/25 06:59 05/01/25 06:02 05/03/25 05:47 D-Dimer 0.64 MG/L FEU (0-0.50) H D-Dimer Comment APTT (Heparin Protocol) 47 SECONDS (45-75) Activated Partial Thromboplast Time 24 SECONDS (22-32) Prothrombin Time 10.3 SECONDS (9.0-12.0) INR International Normalized Ratio 1.0 INR Coagulation Comments Assessment Assessment 59-year-old female with a known history of hypertension, smoker ,presented in ER with complain of severe left leg pain. Plan Plan PLAN Bilateral lower extremity PERIPHERAL ARTERY DISEASE Severe left lower extremity peripheral artery disease Arterial US: Diffusely decreased left lower extremity velocities and monophasic waveforms consistent with hemodynamically significant stenosis/ high-grade stenosis and likely aortoiliac inflow disease. Left VIC: 0.47 Right VIC: 0.5 Vascular US:No DVT noted in left lower extremity. Cholestrol 253, LDL Cholestrol 131 Patient started on Heparin drip in ER Start patient on 40 mg Atorvastatin Counseled for smoking cessation. Monitor for signs for acute limb ischemia like paresthesias, paralysis, coldness of the feet, has been consulted for further evaluation and advised for CT angio abdomen/pelvis, bilateral lower extremity with iodine allergy protocol. HOWEVER PATIENT STATED SHE HAD SEVERE ANAPHYLAXIS WITH IODINE EVEN AFTER RECEIVING PREMEDICATION DURING PREVIOUS HOSPITALIZATION AT [facility]. WILL DISCUSS WITH DR. DANG REGARDING FURTHER OPTIONS LIKE CO2 ANGIOGRAM PATIENT HAD HISTORY OF SEVERE IODINE ANAPHYLAXIS. 05/03/2025: Heparin drip stopped. PT 10, INR 1. Working with the case therapist to arrange for CO2 angiogram in any hospital. CT with contrast not possible under any circumstances even with pre dosing of prednisone. Patient has declined to this procedure Elevated troponins Likely secondary to type 2 [place] Far[place] Score [address] ELEVATION No chest pain trops trending downward tx2 114,104 04/29/2025: Patient reports no chest pain Echo:Normal LV size and function. Mild concentric hypertrophy. LVEF is 65-70%. RV is normal size and function. Elevated right heart pressures with an RVSP of 40 mmHg. Left atrium is mildly dilated. Trileaflet AV appears moderately sclerotic with moderate stenosis. VICTOR HUGO: 1.18 cmsq; Pkv: 342 cm/sec; Gradients: 47/28 mmHG. No insufficiency. Mild MV annular calcification without stenosis. Trace regurgitation. TV appears structurally normal with trace regurgitation. Normal pericardium. No effusion. Leukocytosis most likely due to peripheral neutrophilia She complained of cough with whitish sputum, we will continue monitoring her symptoms 04/30/2025: WBC count increased from 9.5-17.1 The patient received 150 mg prednisolone yesterday keep report for CT with contrast Procalcitonin less than 0.05, CRP 0.09 05/01/2025: Leukocytosis resolved WBC 9 Hypokalemia most likely due to hydrochlorthiazide use. K is 3.2 Started patient on K protocol. Monitor CMP 04/29/2025: Potassium 3.8, we will continue monitoring potassium levels Hyperlipidemia Start atorvastatin 40 mg po daily. 04/29/2025: Triglyceride 253, cholesterol 212, LDL 131, HDL 40 Hypertension home dose of hydrochlorothiazide and losartan on hold in view of soft blood pressure Hypothyrodism Continue Levothyroxine 150 mcg tablet daily. TSH 1.99 Code status: Full code DVT prophylaxis: Heparin Analgesia/sedation: Morphine/[place] Line/tube: PIV GI prophylaxis: None Nutrition: Regular diet PT: Ordered. Prognosis: Guarded Disposition: Continue medical management. Anson Juan PGY1, Internal Medicine [facility] Addendum pain controlled, talked to [facility] surgeon at [facility] in [place] for poss transfer, transfer declined Date of Service: May 03, 2025 Billing Provider: OSWALDO HITCHCOCK MD Common Visit Codes: [id number] INP/OBS CARE(HIGH) ANSON JUAN, RES May 03, 2025 17:26 OSWALDO HITCHCOCK MD May 04, 2025 08:21
[2025-05-03 18:00] VITALS: BP 101/58; PULSE 52; RESP 16; TEMP 98.2; O2SAT 97
[2025-05-03 20:00] VITALS: RESP 16; O2SAT 97
[2025-05-03 22:00] VITALS: BP 138/80; PULSE 50; RESP 16; TEMP 97.7; O2SAT 96
[2025-05-04 06:30] VITALS: BP 115/54; PULSE 56; RESP 16; TEMP 98.3; O2SAT 96
[2025-05-04 08:00] VITALS: RESP 16
[2025-05-04 10:00] VITALS: BP 104/58; PULSE 53; RESP 14; TEMP 97.8; O2SAT 98
[2025-05-04 11:35] LABS: MEAN PLATELET VOLUME 8.8 FL (7.4-10.4); RED CELL DISTRIBUTION WIDTH 15.1 % (11.5-14.5)
[2025-05-04 12:02] LABS: CREATININE 0.59 MG/DL (0.40-0.90); TOTAL CARBON DIOXIDE 30.0 MMOL/L (24-32); eCRCL 99 ML/MIN; eGFR > 90 ML/MIN
--- NOTE | 2025-05-04 14:45 | PROGRESS NOTE- Residence ---
Progress Note - Resident Providers to CC Resident Creating Document: CATRACHITA MCGOWAN, RES ~ Antibiotic Timeout Antibiotic Ordered?: No Subjective Patient has been evaluated at the bedside. States pain 6/10 in the level of the left lower extremity, stabbing type. Better controlled with pain medication. Objective Vital Signs Date Time Temp Pulse Resp B/P (MAP) Pulse Ox O2 Delivery O2 Flow Rate FiO2 05/04/25 10:22 16 05/04/25 10:00 97.8 53 104/58 (73) 98 05/04/25 06:30 Room Air 05/03/25 20:00 0.0 Physical exam: General: Well alert, well oriented, not confused, not agitated, not in acute distress, well cooperated during the physical. HEENT: Conjunctive are pink, sclerae clear, no icterus, pupil is equal in both sides, reactive to light, no ear discharge, no pharyngeal erythema or an edema. Neck: Supple, no JVD, no lymphadenopathy and thyromegaly. Chest: Equal air entry on both lungs, no additional sounds no rhonchi no wheezing at the moment. Cardiovascular: S1-S2 regular sinus rhythm and, regular rate, no gallops, no rubs, no murmurs Abdomen: No visible peristalsis, Bowel sounds present on auscultation, soft, nontender, no guarding, no rigidity Extremities: Left lower extremity, Presence of dorsally pedis pulse, presence of nodules in the level of the left side, 1+ pedal edema noticed, warm to touch. Central Nervous System: No focal neurological deficits, no motor or sensory weakness in all 4 extremities, could move all 4 extremities, 2+ deep tendon reflexes, negative Babinski. Musculoskeletal: No joint swelling, deformities, inflammations, and no scoliosis and back tenderness Skin: Warm and dry. Result Diagram: 05/04/25 1031 05/04/25 1031 Coagulation Studies Laboratory Tests Test 04/28/25 19:44 04/30/25 06:59 05/01/25 06:02 05/03/25 05:47 D-Dimer 0.64 MG/L FEU (0-0.50) H D-Dimer Comment APTT (Heparin Protocol) 47 SECONDS (45-75) Activated Partial Thromboplast Time 24 SECONDS (22-32) Prothrombin Time 10.3 SECONDS (9.0-12.0) INR International Normalized Ratio 1.0 INR Coagulation Comments Assessment Assessment 59-year-old female with a known history of hypertension, smoker ,presented in ER with complain of severe left leg pain. Plan Plan Bilateral lower extremity PERIPHERAL ARTERY DISEASE Severe left lower extremity peripheral artery disease Arterial US: Diffusely decreased left lower extremity velocities and monophasic waveforms consistent with hemodynamically significant stenosis/ high-grade stenosis and likely aortoiliac inflow disease. Left VIC: 0.47 Right VIC: 0.5 Vascular US: No DVT noted in left lower extremity. Cholestrol 253, LDL Cholestrol 131 Patient started on Heparin drip in ER Start patient on 40 mg Atorvastatin Counseled for smoking cessation. Monitor for signs for acute limb ischemia like paresthesias, paralysis, coldness of the feet, has been consulted for further evaluation and advised for CT angio abdomen/pelvis, bilateral lower extremity with iodine allergy protocol. HOWEVER PATIENT STATED SHE HAD SEVERE ANAPHYLAXIS WITH IODINE EVEN AFTER RECEIVING PREMEDICATION DURING PREVIOUS HOSPITALIZATION AT [facility]. WILL DISCUSS WITH DR. DANG REGARDING FURTHER OPTIONS LIKE CO2 ANGIOGRAM PATIENT HAD HISTORY OF SEVERE IODINE ANAPHYLAXIS. Heparin drip stopped. On 05/03/2025. 05/04/2025: CT with contrast not possible under any circumstances even with pre dosing of prednisone. Patient has declined to this procedure Plan: Pain control with [place] 5 mg q.4h PRN. For moderate pain. [place] 10 mg q.4h PRN for severe pain. Case management actively working for arranging CO2 angiogram in any hospital. Elevated troponins Likely secondary to type 2 [place] Farhat Score [address] ELEVATION No chest pain trops trending downward tx2 114,104 Echo:Normal LV size and function. Mild concentric hypertrophy. LVEF is 65-70%. RV is normal size and function. Elevated right heart pressures with an RVSP of 40 mmHg. Left atrium is mildly dilated. Trileaflet AV appears moderately sclerotic with moderate stenosis. VICTOR HUGO: 1.18 cmsq; Pkv: 342 cm/sec; Gradients: 47/28 mmHG. No insufficiency. Mild MV annular calcification without stenosis. Trace regurgitation. TV appears structurally normal with trace regurgitation. Normal pericardium. No effusion. 05/04/2025: Patient reports no chest pain. Troponin levels trended down. Leukocytosis most likely secondary to steroids: The patient received one dose of prednisone for CT scan with IV contrast. But the patient declined test. WBC currently within reference range. Continue to monitor CBC. Hypokalemia most likely due to hydrochlorthiazide use. Current potassium levels within reference range. Continue to monitor with CMP. Hyperlipidemia Atorvastatin 40 mg daily. Hypertension home dose of hydrochlorothiazide and losartan on hold in view of soft blood pressure Hypothyrodism TSH 1.99 Continue Levothyroxine 150 mcg tablet daily. Code status: Full code DVT prophylaxis: Heparin Analgesia/sedation: Morphine/[place] Line/tube: PIV GI prophylaxis: None Nutrition: Regular diet PT: Ordered. Prognosis: Guarded Disposition: Continue medical management. Case management actively working for CO2 angiogram in another facility. Catrachita Saavedra Internal Medicine Resident [facility] Date of Service: May 04, 2025 Billing Provider: OSWALDO HITCHCOCK MD Common Visit Codes: [id number] INP/OBS CARE(HIGH) CATRACHITA MCGOWAN, RES May 04, 2025 14:45 OSWALDO HITCHCOCK MD May 05, 2025 06:38
[2025-05-04 18:40] VITALS: BP 126/48; PULSE 77; RESP 18; TEMP 98.7; O2SAT 93
[2025-05-05 06:38] VITALS: BP 116/57; PULSE 58; RESP 20; TEMP 97.8; O2SAT 98
[2025-05-05 08:00] VITALS: RESP 16
[2025-05-05 10:09] VITALS: BP 135/59; PULSE 61; RESP 20; TEMP 97.8; O2SAT 96
[2025-05-05 10:21] LABS: CREATININE 0.51 MG/DL (0.40-0.90); TOTAL CARBON DIOXIDE 27.1 MMOL/L (24-32); eCRCL 114 ML/MIN; eGFR > 90 ML/MIN
[2025-05-05 13:27] LABS: MEAN PLATELET VOLUME 8.7 FL (7.4-10.4); RED CELL DISTRIBUTION WIDTH 15.3 % (11.5-14.5)
[2025-05-05 14:08] VITALS: RESP 16
--- NOTE | 2025-05-05 19:30 | DISCHARGE SUMMARY-Residence ---
Discharge Summary Providers to CC Resident Creating Document: ADWOA VALDEZ, RES ~ Discharge Summary Admission Diagnosis: PERIPHERAL ARTERY DISEASE Hospital Course DATE OF ADMISSION: 04/28/2025 DATE OF DISCHARGE: 05/05/2025 Discharge Diagnosis\Comment: Bilateral lower extremity PERIPHERAL ARTERY DISEASE Severe left lower extremity peripheral artery disease Elevated troponins Likely secondary to type 2 DE Leukocytosis most likely secondary to steroids: Hypokalemia most likely due to hydrochlorthiazide use. Hyperlipidemia Hypertension Hypothyrodism Operations\Procedures: None Consultants: Vascular surgeon Complications: None Condition on DC: Stable Continued Medications: Atorvastatin Calcium (Atorvastatin Calcium) 10 Mg Tablet 1 TAB PO DAILY Cyclobenzaprine* (Cyclobenzaprine*) 10 Mg Tablet 1 TAB PO TID PRN for moderate or severe pain 4-10 Levothyroxine Sodium (Levothyroxine Sodium) 150 Mcg Tablet 1 TAB PO DAILY Loratadine (Loratadine) 10 Mg Tablet 1 TAB PO QAM Losartan Potassium (Losartan Potassium) 25 Mg Tablet 1 TAB PO DAILY Discontinued Medications: Hydrochlorothiazide (Hydrochlorothiazide) 50 Mg Tablet 1 TAB PO QAM Discharge Summary: HPI as per admitting physician: This is a 59-year-old female with a known history of hypertension, smoker ,presented in ER with complain of severe left leg pain. Patient states that her left leg pain was started 2 months ago which is progressively worsening excerbated by walking and partially relieved by rest.She grades her pain 10/10 during walking and around 7-8/10 at rest. Her pain starts from hip and radiate down to the mid calf.In addition to the pain, she has noticed left lower extremity swelling from knee to the leg since monday and thigh swelling since 2 weeks,She denies pain in her left feet but reports tingling sensations and feels cold, she can barely walk because of pain, she can go to restroom by herself with the support of ramirez. Apart from that she also had bilateral hip replacement 7-8 years ago. She has also experienced anaphylactic shock with iodine and aspirin. allergic to iodine,aspirin,cat dust,mold and some trees which she dont remember. Hospital course: The patient was admitted with bilateral lower extremity peripheral artery disease (PAD), presenting with severe left lower extremity claudication and pain. Arterial ultrasound revealed diffusely decreased left lower extremity velocities, monophasic waveforms consistent with hemodynamically significant/high-grade stenosis, likely aortoiliac inflow disease. VIC: Left 0.47, Right 0.5. Vascular ultrasound showed no DVT. Initial management included heparin drip started in the ER, atorvastatin 40 mg daily, and counseling for smoking cessation. She was closely monitored for acute limb ischemia (paresthesias, paralysis, coldness). Dr. Negro (Vascular Surgery) was consulted and recommended CT angiogram (abdomen/pelvis and bilateral lower extremities) with contrast. However, the patient reported a severe anaphylactic reaction to iodine-based contrast during a prior hospitalization, despite premedication. Multiple attempts were made to arrange transfer to a tertiary center for CO2 angiography, including [facility] and other [facility] hospitals. Case management actively coordinated these efforts. Despite these attempts, CT angiography with iodinated contrast was deemed unsafe, and the patient firmly declined any procedure involving iodinated contrast, even with premedication. On 05/03/2025, the heparin drip was discontinued as no immediate revascularization could be pursued inpatient. Pain was managed with [place] 510 mg q4h PRN. By 05/04/2025, the patient remained hemodynamically stable, without signs of acute limb ischemia, and agreed to outpatient follow-up for CO2 ang iography at [facility]. Additional findings during hospitalization included: Elevated troponins, likely Type 2 DE (Farhat score 2), attributed to demand ischemia. ECG showed no ischemic changes. Troponins trended down (114 ? 104). Echocardiogram showed normal LV size and function (LVEF 6570%), moderate aortic valve stenosis (VICTOR HUGO 1.18 cm, peak velocity 342 cm/s, mean gradient 28 mmHg), and RVSP 40 mmHg. No chest pain recurrence. Leukocytosis transient, likely steroid-induced from premedication for potential contrast exposure; resolved spontaneously. Hypokalemia, likely due to outpatient hydrochlorothiazide use, corrected with normalization of potassium levels. Hyperlipidemia treated with atorvastatin 40 mg daily. Hypertension: Home hydrochlorothiazide and losartan held due to soft blood pressures. Hypothyroidism: Continued levothyroxine 150 mcg daily. Given her history of life-threatening anaphylaxis to iodinated contrast and refusal of any further inpatient intervention, the patient was discharged on 05/04/2025 in stable condition with strong recommendations for urgent outpatient vascular evaluation and CO2 angiography at [facility]. She was counseled extensively on strict follow-up, smoking cessation, PAD symptom monitoring (color changes, numbness, coldness, pain at rest), and when to return to the hospital (any signs of acute limb ischemia). Physical examination today: General: Well alert, well oriented, not confused, not agitated, not in acute distress, well cooperated during the physical. HEENT: Conjunctive are pink, sclerae clear, no icterus, pupil is equal in both sides, reactive to light, no ear discharge, no pharyngeal erythema or an edema. Neck: Supple, no JVD, no lymphadenopathy and thyromegaly. Chest: Equal air entry on both lungs, no additional sounds no rhonchi no wheezing at the moment. Cardiovascular: S1-S2 regular sinus rhythm and, regular rate, no gallops, no rubs, no murmurs Abdomen: No visible peristalsis, Bowel sounds present on auscultation, soft, no ntender, no guarding, no rigidity Extremities: Left lower extremity, Presence of dorsally pedis pulse, presence of nodules in the level of the left side, 1+ pedal edema noticed, warm to touch. Central Nervous System: No focal neurological deficits, no motor or sensory weakness in all 4 extremities, could move all 4 extremities, 2+ deep tendon reflexes, negative Babinski. Musculoskeletal: No joint swelling, deformities, inflammations, and no scoliosis and back tenderness Skin: Warm and dry. Laboratory Tests Test 05/04/25 10:31 05/05/25 09:45 05/05/25 13:01 White Blood Count 7.2 X10'3 7.6 X10'3 Red Blood Count 4.23 X10'6 4.47 X10'6 Hemoglobin 13.9 g/dl 14.6 g/dl Hematocrit 41.0 % 43.0 % Mean Corpuscular Volume 96.9 FL 96.3 FL Mean Corpuscular Hemoglobin 32.8 PG 32.8 PG Mean Corpuscular Hemoglobin Concent 33.9 g/dL 34.0 g/dL Red Cell Distribution Width 15.1 % 15.3 % Platelet Count 266 X10'3 285 X10'3 Mean Platelet Volume 8.8 FL 8.7 FL Neutrophils (%) (Auto) 57.0 % 61.3 % Lymphocytes (%) (Auto) 29.2 % 27.3 % Monocytes (%) (Auto) 8.7 % 6.9 % Eosinophils (%) (Auto) 4.3 % 3.7 % Basophils (%) (Auto) 0.8 % 0.8 % Neutrophils # (Auto) 4.1 X10'3 4.6 X10'3 Lymphocytes # (Auto) 2.1 X10'3 2.1 X10'3 Monocytes # (Auto) 0.6 X10'3 0.5 X10'3 Eosinophils # (Auto) 0.3 X10'3 0.3 X10'3 Basophils # (Auto) 0.1 X10'3 0.1 X10'3 CBC Comment Sodium Level 141 MMOL/L 139 MMOL/L Potassium Level 4.2 MMOL/L 4.1 MMOL/L Chloride Level 104 MMOL/L 104 MMOL/L Carbon Dioxide Level 30.0 MMOL/L 27.1 MMOL/L Anion Gap 7 8 Blood Urea Nitrogen 16 MG/DL 13 MG/DL Creatinine 0.59 MG/DL 0.51 MG/DL Estimated GFR/1.73 m2 > 90 ML/MIN > 90 ML/MIN BUN/Creatinine Ratio 27.1 25.5 Glucose Level 100 MG/DL 116 MG/DL Calcium Level 8.7 MG/DL 8.8 MG/DL Total Bilirubin 0.7 MG/DL 0.5 MG/DL Aspartate Amino Transf (AST/SGOT) 36 U/L 21 U/L Alanine Aminotransferase (ALT/SGPT) 37 U/L 29 U/L Alkaline Phosphatase 72 IU/L 73 IU/L Total Protein 6.5 G/DL 6.2 G/DL Albumin 3.1 G/DL 3.0 G/DL Globulin 3.4 G/DL 3.2 G/DL Albumin/Globulin Ratio 0.9 0.9 Chemistry Comments Advise on discharge: Go to ER if severe pain in legs or discolouration of toes. Follow up with cardiovascular surgery and PCP in 1-2 weeks. Proceed with CO2 angiogram at outpatient facility for further management. Please be compliant with medications. Heart healthy diet and weight loss recommended *Problems/Diagnosis: (1) Claudication of both lower extremities Status: Acute Total Time Spent on D/C: > 30 Minutes Addendum pt condition remained stable throughout hospitalization, pain controlled, no ulcers or ac ischemia; attempts to trannsfer pt to tertiary centers failed, pt asked today to be discharged so she can take matters in own hands morbid obesity bmi 44 Date of Service: May 05, 2025 Billing Provider: OSWALDO HITCHCOCK MD Common Visit Codes: [id number] DISCH DAY >30min ADWOA VALDEZ, RES May 05, 2025 19:30 OSWALDO HITCHCOCK MD May 05, 2025 22:11
== END 2025-05-05 16:20 | disposition home or self-care (01) | DRG 197 ==
LOC: ER 14:34 → ED HOLD 20:38 → EDBEDREQ 20:40 → PCU 3S 23:09 → SUR 3N 05-01 16:32
PROVIDERS: ADMIT Internal Medicine; ATTEND Internal Medicine
DX: I73.9 Peripheral vascular disease, unspecified (principal); I21.A1 Myocardial infarction type 2; D72.829 Elevated white blood cell count, unspecified; E03.9 Hypothyroidism, unspecified; I10 Essential (primary) hypertension; E87.6 Hypokalemia; Z96.643 Presence of artificial hip joint, bilateral; T50.2X5A Adverse effect of carbonic-anhydrase inhibitors, benzothiadiazides and other diuretics, initial encounter; T38.0X5A Adverse effect of glucocorticoids and synthetic analogues, initial encounter; E66.01 Morbid (severe) obesity due to excess calories; J44.9 Chronic obstructive pulmonary disease, unspecified; Z88.8 Allergy status to other drugs, medicaments and biological substances; Z79.899 Other long term (current) drug therapy; Z90.710 Acquired absence of both cervix and uterus; Y92.89 Other specified places as the place of occurrence of the external cause; Z68.41 Body mass index [BMI] 40.0-44.9, adult
CPT/HCPCS: 36415; 80053; 80061; 83036; 83735; 83880; 84100; 84132; 84145; 84443; 84484; 85025; 85379; 85610; 85730; 86140; 87081; 93005; 93306; 93922; 93926; 93971; 96374; 97116; 97162; 99285; A6258; G0378; J1200; J1644; J2270; J7512

== ENCOUNTER 2025-08-22 09:17 | Emergency (ER) | payer MEDICAID ==
[~2025-08-22] VITALS: Ht 170.2 cm; Wt 126.6 kg
[~2025-08-22 09:17] MED LIST changes: -HYDR50TA4 PO
[2025-08-22] MEDS: LIDOcaine 1% W/epiNEPHrine 1:100,000 20ml vial SQ ONE (10:35)
[2025-08-22 10:55] LABS: MEAN PLATELET VOLUME 8.4 FL (7.4-10.4); RED CELL DISTRIBUTION WIDTH 14.2 % (11.5-14.5)
--- NOTE | 2025-08-22 11:08 | Physician Documentation ---
History of Present Illness ~ Chief Complaint: Abscess Stated Complaint: ABSCESS Time Seen by MD: 09:42 Primary Medical Doctor: ERIC ZARAGOZA Mode of Arrival: POV HPI Patient very pleasant 59-year-old female that presents to the emergency department for evaluation of the abscess to her suprapubic area. Abscess appears to have a folliculitis origin at this time. Patient denies fever chills nausea vomiting diarrhea at this time. Patient reports significant pain around the abscess and mild swelling associated with it. Patient reports that she has a vascular access procedure scheduled for next week in the surgeon told her she would have to have the abscess drained and be put on antibiotics reports he can have the procedure done. Patient denies any other symptoms at this time. Tetanus Within 5 Years: Yes Medication Reconciliation Allergies: Coded Allergies: Iodine and Iodide Containing Produc (Unverified Allergy, Severe, 08/22/25) aspirin (Unverified Allergy, Severe, 08/22/25) Scheduled Atorvastatin Calcium (Atorvastatin Calcium), 1 TAB PO DAILY, (Reported) Levothyroxine Sodium (Levothyroxine Sodium), 1 TAB PO DAILY, (Reported) Loratadine (Loratadine), 1 TAB PO QAM, (Reported) Losartan Potassium (Losartan Potassium), 1 TAB PO DAILY, (Reported) Scheduled PRN Cyclobenzaprine* (Cyclobenzaprine*), 1 TAB PO TID PRN for moderate or severe pain 4-10, (Reported) Past Medical History Past Medical History: Allergic Rhinitis, Sinusitis, Hypertension, Asthma, COPD Past Surgical History: noncontributory Alcohol Use: None Drug Use: none Lives In: Home Review of Systems ROS As stated above in the HPI, otherwise all systems are reviewed and negative. Physical Exam Vital Signs: Temperature: 97.6, Source: Temporal, Heart Rate: 76, Respiratory Rate: 16, BP: 152/88, Pulse Oximetry: 98, Weight: 126.600 Oxygen Flow Rate: 0 Physical Exam VITALS: Reviewed and as above. GENERAL: Alert, no apparent distress. HEENT: Normocephalic, atraumatic, PERRL, EOMI, dry mucosa, no erythema RESPIRATORY: Lungs clear, normal breath sounds, no respiratory distress. CHEST: No accessory muscle use, no retractions CV: Regular rate, rhythm, no edema, no murmur, No: JVD GI: Soft, non-tender, bowels sounds present, no rebound, guarding, or rigidity BACK: No CVA tenderness, or swelling MUSCULOSKELETAL No deformities, no edema SKIN: Warm and dry, mild erythema and edema noted to the suprapubic region area of induration and small abscess noted during examination. NEURO: Oriented x4, No motor or sensory deficit PSYCH: Normal mood and affect, no agitation Procedures I & D Procedure : Anesthesia: Lidocaine, Lidocaine w/ Epi Volume Anesthetic (mls): 4 Blade Size: 11 Prep/Supplies: betadine prep, drapes applied, dressing applied, irrigated, packing placed Incision: mass incised, pus drained, blood drained Tolerated Procedure Well?: yes, no complications Procedure Note Patient tolerated procedure well. Dressings applied. Patient provided with return precautions and education on need for follow up. Progress Results/Orders Results/Orders Orders - JOE CLEMONSP CMP (08/22/25 10:12) Urinalysis, Cult If Indicated (08/22/25 10:12) Completed Orders - JOE CLEMONS Cbc/Diff (08/22/25 10:12) Lidocaine 1% W/Epi 1:100,000 (Xylocaine (08/22/25 10:15) Vital Signs 08/22/25 08/22/25 09:25 10:00 Temp 97.6 Pulse 76 Resp 16 B/P (MAP) 152/88 Pulse Ox 98 O2 Flow Rate 0 Laboratory Tests Test 08/22/25 10:32 White Blood Count 8.5 Red Blood Count 4.60 Hemoglobin 15.1 Hematocrit 44.1 Mean Corpuscular Volume 95.9 Mean Corpuscular Hemoglobin 32.8 H Mean Corpuscular Hemoglobin Concent 34.2 Red Cell Distribution Width 14.2 Platelet Count 290 Mean Platelet Volume 8.4 Neutrophils (%) (Auto) 59.2 Lymphocytes (%) (Auto) 30.3 Monocytes (%) (Auto) 6.4 Eosinophils (%) (Auto) 3.0 Basophils (%) (Auto) 1.1 H Neutrophils # (Auto) 5.1 Lymphocytes # (Auto) 2.6 Monocytes # (Auto) 0.5 Eosinophils # (Auto) 0.3 Basophils # (Auto) 0.1 CBC Comment Chemistry Comments Medical Decision Making Additional information obtaine: other Findings Chief Complaint: Suprapubic abscess History of Present Illness: 59-year-old female presented to the emergency department with a suprapubic abscess of folliculitis origin. Patient reported significant pain and mild swelling around the abscess. She denied fever, chills, nausea, vomiting, and diarrhea. Notably, the patient has a vascular access procedure scheduled for next week, and her surgeon recommended drainage and antibiotic treatment prior to the procedure. Physical Examination: Suprapubic abscess consistent with folliculitis origin, with significant tenderness and mild surrounding swelling. No signs of systemic inflammatory response syndrome (SIRS) were present. Procedure Performed: Incision and drainage of suprapubic abscess with de- loculation under local anesthesia with lidocaine. Quarter-inch iodoform packing was placed in the abscess cavity, and a sterile dressing was applied over the wound. Medical Decision-Making: Diagnosis: Suprapubic cutaneous abscess, likely folliculitis origin Complexity of Decision-Making: Moderate The primary treatment for cutaneous abscesses is incision and drainage, which was successfully performed. While the Infectious Diseases Society of [place] guidelines indicate that systemic antibiotics are not routinely required after incision and drainage for uncomplicated abscesses, several factors in this case support adjunctive antibiotic therapy: Upcoming vascular access procedure: The patient has a scheduled vascular access procedure next week, which represents a high-risk intervention where infection could have serious consequences. The surgeon specifically requested antibiotic treatment prior to the procedure. Evidence supporting adjunctive antibiotics: Recent meta-analyses demonstrate that systemic antibiotics after incision and drainage improve clinical cure rates (odds ratio 2.32) and reduce the incidence of new lesions. The IDSA guidelines recommend antibiotics for patients with specific risk factors, including those with planned procedures or immunocompromising conditions. MRSA coverage: Given the high prevalence of methicillin-resistant Staphylococcus aureus in cutaneous abscesses, empirical antibiotic therapy should have activity against community-associated MRSA. Treatment Plan: Incision and drainage with iodoform packing completed Is a diabetic so be prescribed. First dose of doxycycline given here in the emergency department. Wound care instructions provided Follow-up arranged with primary care provider on Monday for wound check, with ED follow-up as backup Disposition: Discharged home in stable condition with close outpatient follow-up Risk of Complications: Low, given successful drainage, appropriate antibiotic coverage, and planned close follow-up prior to vascular access procedure Differential Dx:Considerations: Include: Abscess, Bacteremia, Cellulitis, Erysipelas, Felon, Gas gangrene, Hidrademitis suppurativa, Impetigo, Lymphang itis, Osteromyelitis, Paronychia, Septicemia, Other Departure Disposition: 01 HOME / SELF CARE / HOMELESS Impression: Primary Impression: Abscess Additional Impression: Wound abscess Condition: Stable Discharge Instructions: Abscess, Care After, Skin Abscess, [id number] Additional Instructions: Your Diagnosis: You were treated today for a skin abscess (a pocket of infection) in your suprapubic area (lower abdomen). What We Did Today: Numbed the area with local anesthetic Made a small cut to drain the infection Cleaned out the abscess cavity Placed packing material (iodoform gauze) inside the wound to help it heal from the inside out Covered the wound with a sterile dressing Started you on antibiotics Your Medications: Doxycycline 100 mg: Take one pill by mouth twice daily for 10 days. Take the full course even if you feel better. Important tips for taking doxycycline: Take with a full glass of water to prevent irritation of your throat and stomach You may take with food if it upsets your stomach Avoid excessive sun exposure while taking this medication, as it can make your skin more sensitive to sunlight. Use sunscreen if you need to be outdoors. Finish all the pills even if the wound looks better Wound Care Instructions: For the first 24-48 hours: Keep the dressing clean and dry You may take [id number] pain medication (like ibuprofen or acetaminophen) as needed for pain After 24-48 hours: The packing will need to be removed at your follow-up appointment You may shower, but avoid soaking the wound in a bathtub or pool Gently pat the area dry after showering Change the outer dressing if it becomes wet or dirty Follow-Up Care: You have a follow-up appointment scheduled for Monday with your primary care provider for a wound check and packing removal. If you cannot make this appointment, return to the emergency department for wound care. This follow-up is important because: The packing needs to be removed The wound needs to be checked to make sure it's healing properly You have a vascular access procedure scheduled next week, and your surgeon wants to make sure the infection is clearing before that procedure When to Return to the Emergency Department: Come back to the emergency department or call 911 if you develop any of the following: Fever over 100.4F (38C) Increasing redness, swelling, or warmth around the wound Red streaks spreading from the wound Increasing pain that is not controlled with [id number] pain medication Pus or foul-smelling drainage from the wound Nausea, vomiting, or diarrhea (especially if severe or bloody) Dizziness, confusion, or feeling very ill Severe skin rash or allergic reaction to the antibiotic Additional Important Information: Abscesses can sometimes come back or new ones can develop. Practice good hygiene, including regular handwashing and keeping any cuts or scrapes clean. Do not squeeze or pick at the wound Wash your hands before and after touching the wound area Do not share personal items like towels, razors, or clothing with others If you have any questions or concerns before your follow-up appointment, please call your primary care provider or return to the emergency department. Referrals: NO PRIMARY CARE PROVIDER (PCP) Prescriptions Doxycycline Hyclate (Doxycycline Hyclate) 100 Mg Capsule 1 CAP PO Q12H for 10 Days, #20 CAP Prov: JOE CLEMONS 08/22/25 Education Educated: Patient Educated regarding: diagnosis, treatment, need for follow up Signature Scribe Signature: A Attestation: Scribed for Joe Clemons by PATRICIA Delgado . 08/22/25 11:14 JOE CLEMONS Aug 22, 2025 11:08
[2025-08-22 11:11] LABS: CREATININE 0.62 MG/DL (0.40-0.90); TOTAL CARBON DIOXIDE 29.2 MMOL/L (24-32); eCRCL 94 ML/MIN; eGFR > 90 ML/MIN
[2025-08-22 11:13] VITALS: BP 108/69; PULSE 67; RESP 13; O2SAT 96
[2025-08-22] MEDS ORDERED: DOXY-1 PO (11:13)
[2025-08-22] MEDS: DOXYCYCLINE 100MG CAPSULE PO STA (11:22)
[2025-08-22 11:41] VITALS: TEMP 97.6
--- NOTE | 2025-08-22 12:13 | ELECTROCARDIOGRAPH REPORT ---
[facility] Test Date: 2025-08-22 Test Time: 09:34:15 Pat Name: KEI LEON Department: EMERGENCY ROOM Room: Gender: F Electronic [employer] Specialist: PM : 1965 Requested By: DEPARTMENT EMERGENCY Order Number: [id number] Reading MD: Dr. ZACKARY Moraes Measurements Intervals [place] Rate: 90 P: 35 SD: 172 QRS: 8 QRSD: 93 T: 23 QT: 366 QTc: 448 Interpretive Statements Sinus arrhythmia Low voltage, precordial leads Consider anterior infarct Electronically Signed On 08-23-2025 19:39:[address] ZACKARY Moraes Please click the below link to view image of tracing.
== END 2025-08-22 11:43 | disposition home or self-care (01) ==
LOC: ER 09:18
DX: L02.211 Cutaneous abscess of abdominal wall (principal); T81.49XA Infection following a procedure, other surgical site, initial encounter; I10 Essential (primary) hypertension; J44.9 Chronic obstructive pulmonary disease, unspecified; Z88.6 Allergy status to analgesic agent; Z88.8 Allergy status to other drugs, medicaments and biological substances; X58.XXXA Exposure to other specified factors, initial encounter
CPT/HCPCS: 10060; 36415; 80053; 85025; 93005; 99284; A6266; A6449